=== PATIENT | female | born 1995 | race Caucasian/White ===

== ENCOUNTER 2017-01-26 19:39 | Emergency (ER) | payer OTHER ==
[2017-01-26 21:23] VITALS: BP 135/70
--- NOTE | 2017-01-26 21:50 | PHYS DOC ---
General Chief Complaint: FLANK PAIN Stated Complaint: R FLANK PAIN Time Seen by MD: 21:17 Source: patient Problems: History of Present Illness Initial Comments Patient with male friend for right sided abdominal pain. Patient has had sudden onset about 11:00 today. Since she's never had it before. No history of injury or trauma to the area. She says it feels sharp. It increased over the course today. It's mostly in the right mid to lower abdominal area. She really not radiating flank. She's had a low-grade fever of 99.2. There is no chills. There is no runny nose or sore throat. There is no chest pain or shortness of breath. She has had nausea with vomiting 2. She's not been able to tolerate by mouth food or fluids since. No blood or bilious material. She has the abdominal pain as described. There is some alternate diarrhea and constipation, but none today. She has no dysuria. She says her urine does look dark. She has some vaginal spotting which is been intermittent for the last several months since placement of an IUD, but this is not changed or different. There is no focal extremity or neurologic complaints. Patient states some [id number] medicine for this at home without help. She notes no other increased or decreasing factors. Patient's past medical history is remarkable for asthma anxiety and depression. She smokes less than a pack of cigarette [place]. She's nonuser of ethanol. She has no known family history of kidney disease or gallbladder problems. Allergies: Coded Allergies: No Known Allergies (Verified Allergy, Unknown, 01/26/17) Past Medical History Medical History: asthma Psychosocial History: anxiety, depression Social History Smoker: less than 1 pack/day Alcohol: none Review of Systems All Other Systems: Reviewed and Negative Physical Exam General Appearance: WD/WN, mild distress Neck: full range of motion, supple, normal inspection Respiratory: lungs clear, normal breath sounds, no respiratory distress Cardiovascular: regular rate, rhythm, no edema Gastrointestinal: soft, no organomegaly, tenderness Back: no CVA tenderness, no vertebral tenderness Extremities: non-tender, normal inspection Neurologic/Psychiatric: alert, normal mood/affect, oriented x 3 Skin: normal color Lymphatic: no adenopathy Comments Generally this a well-developed well-nourished white female does look to be in some mild distress with abdominal pain. Vitals are as noted. Pertinent findings on physical exam shows chest to be clear. Cardiac vascular exam shows regular rate and rhythm without murmur. The abdomen is soft. She is moderately tender in the right lower quadrant mildly so in the right upper quadrant. There is no masses, organomegaly, or perineal findings noted. Back shows no CVA tenderness. Extremities show no rash cyanosis or edema. Neurologic exam shows regular be awake alert oriented and cooperative. Remainder of physical exam is clinically unremarkable. Orders, Labs, Meds Old charts note no prior ER visits within the current system. Labs today are clinically unremarkable. CT scan of the abdomen and pelvis showed no acute changes per radiology. 2330 Patient resting comfortably in the ER. I discussed with her the uncertain cause of her abdominal and flank discomfort. She says her pain is actually much improved at this time, she is able tolerate some by mouth fluids without difficulty. I discussed with her usual natural history of abdominal pain of uncertain cause, that most often resolves on its own. I suspect she will continue to do well. She is able to drink some apple juice here also. We'll send her home with some appropriate medication at home for pain as well as for vomiting should she have any further difficulty. She does voiced understanding need to follow up with primary care and especially to return to the ER immediately as needed if worsening anyway for increasing pain, vomiting, diarrhea, fever, or other symptoms. As noted, she looks much improved, alert and smiling, in no acute distress, and okay for discharge home at this time. SHAWN STODDARD MD Jan 26, 2017 21:50
[2017-01-26] MEDS ORDERED: KETOROLAC 30 MG/ML VIAL. IV ONE (22:15)
[2017-01-26] MEDS ORDERED: ONDANSETRON PF 4 MG/2 ML VIAL. IV ONE (22:15)
[2017-01-26 22:26] LABS: BASO % 0 % (0-3); EOS # 0.1 x10^3/uL (0.0-0.7); EOS % 1 % (0-3); HEMATOCRIT 41.3 % (36.0-47.0); HEMOGLOBIN 13.8 g/dL (12.0-15.5); LYMPH # 1.2 x10^3/uL (1.0-4.8); LYMPH % 11 % (24-48); MEAN CORPUSCULAR HEMOGLOBIN 30 pg (25-35); MEAN CORPUSCULAR HGB CONC 33 g/dL (31-37); MEAN CORPUSCULAR VOLUME 88 fL (79-100); MONO # 0.4 x10^3/uL (0.0-1.1); MONO % 4 % (0-9); NEUT # 9.1 x10^3uL (1.8-7.7); NEUT % 84 % (31-73); PLATELET COUNT 219 x10^3/uL (140-400); RED BLOOD COUNT 4.67 x10^6/uL (3.50-5.40); RED CELL DISTRIBUTION WIDTH 13.9 % (11.5-14.5); WHITE BLOOD COUNT 10.9 x10^3/uL (4.0-11.0)
[2017-01-26 22:34] LABS: BILIRUBIN,URINE NEG (NEG); CLARITY,URINE CLEAR; COLOR,URINE AMBER; GLUCOSE,URINE NEG (NEG)
[2017-01-26 22:35] LABS: BACTERIA,URINE 0 /HPF (0-FEW); NITRITE,URINE NEG (NEG); RBC,URINE OCC /HPF (0-2); SQUAMOUS EPITHELIAL CELL,UR OCC /LPF; UROBILINOGEN,URINE 2 mg/dL (0.2 mg/dL); WBC,URINE OCC /HPF (0-4)
--- NOTE | 2017-01-26 22:35 | RAD ---
PROCEDURE CT abdomen and pelvis without intravenous contrast. HISTORY Lower right-sided abdominal pain. TECHNIQUE Helical CT of the abdomen and pelvis was performed without intravenous or oral contrast. Exposure: One or more of the following individualized dose reduction techniques were utilized for this examination: 1. Automated exposure control. 2. Adjustment of the mA and/or kV according to patient size. 3. Use of iterative reconstruction technique. COMPARISON None. FINDINGS Evaluation of solid organs is limited by lack of intravenous contrast. Evaluation of enteric structures may be limited by lack of oral contrast. Liver, spleen, pancreas, gallbladder, and bilateral adrenal glands are unremarkable. Bilateral kidneys and ureters are free of stone or obstruction. No bowel obstruction or inflammation is seen. Appendix is without evidence of inflammation. Urinary bladder is unremarkable. Intrauterine device is present. Uterus and adnexa have otherwise unremarkable CT appearance. No free air or significant free fluid is seen in the abdomen or pelvis. Vaginal tampon is present. IMPRESSION No acute abnormality identified in the abdomen or pelvis. No evidence of urinary stone. Electronically signed by: Yariel Keenan MD (Jan 26, 2017 22:33:18)
[2017-01-26 22:38] LABS: ALBUMIN 3.8 g/dL (3.4-5.0); ALBUMIN/GLOBULIN RATIO 1.3 (1.0-1.7); CALCIUM 8.9 mg/dL (8.5-10.1); CREATININE 0.7 mg/dL (0.6-1.0); GFR 106.7; POTASSIUM 3.6 mmol/L (3.5-5.1); TOTAL BILIRUBIN 0.6 mg/dL (0.2-1.0); TOTAL PROTEIN 6.8 g/dL (6.4-8.2)
== END 2017-01-26 23:45 | disposition home or self-care (01) ==
LOC: ER 19:39
DX: R10.31 Right lower quadrant pain (principal); R50.9 Fever, unspecified; R11.2 Nausea with vomiting, unspecified; F17.210 Nicotine dependence, cigarettes, uncomplicated; J45.909 Unspecified asthma, uncomplicated
CPT/HCPCS: 36415; 74176; 80053; 81001; 82150; 83690; 84703; 85027; 96374; 96375; 99285; J1885; J2405; 81025

== ENCOUNTER 2019-01-25 18:50 | Observation (INO) | payer OTHER ==
[~2019-01-25] VITALS: Ht 160 cm; Wt 80.5 kg
[2019-01-25 19:41] VITALS: BP 141/91
--- NOTE | 2019-01-25 19:45 | NUR ---
ADMISSION: The patient, YORDY MARTINES, 23 y/o, F admitted by ELHAM MALCOLM MD, was given written information regarding hospital policies, unit procedures and contact persons. Pt a direct admit to room [address] Malcolm. Pt here for c/o lower abdominal pain and bloody stools since Wednesday. Dx: Diverticulitis. Denies current pain and last stool was yesterday 01/24. VS assessed, stable. Dr. Malcolm notified of patient arrival, orders received. Call light in reach. Valuables were checked and logged. Left in room with patient.
[2019-01-25] MEDS ORDERED: IOHEXOL 300 MG/ML 75 ML VIAL. IV ONE (20:00)
[2019-01-25] MEDS: IV NORMAL SALINE 1,000ML 1,000 ML IV SCH (20:00)
[2019-01-25] MEDS ORDERED: IOHEXOL 240 MG/ML 50ML VIAL. PO ONE (20:00)
[2019-01-25 20:07] LABS: BASO # 0.1 x10^3/uL (0.0-0.2); BASO % 1 % (0-3); EOS # 0.2 x10^3/uL (0.0-0.7); EOS % 2 % (0-3); HEMATOCRIT 41.2 % (36.0-47.0); HEMOGLOBIN 14.5 g/dL (12.0-15.5); LYMPH # 2.3 x10^3/uL (1.0-4.8); LYMPH % 22 % (24-48); MEAN CORPUSCULAR HEMOGLOBIN 33 pg (25-35); MEAN CORPUSCULAR HGB CONC 35 g/dL (31-37); MEAN CORPUSCULAR VOLUME 93 fL (79-100); MONO # 0.6 x10^3/uL (0.0-1.1); MONO % 5 % (0-9); NEUT # 7.3 x10^3uL (1.8-7.7); NEUT % 70 % (31-73); PLATELET COUNT 339 x10^3/uL (140-400); RED BLOOD COUNT 4.43 x10^6/uL (3.50-5.40); RED CELL DISTRIBUTION WIDTH 12.8 % (11.5-14.5); WHITE BLOOD COUNT 10.5 x10^3/uL (4.0-11.0)
[2019-01-25] MEDS ORDERED: PANT40TA5 PO (20:21)
[2019-01-25] MEDS ORDERED: ONDA4TAB12 PO (20:21)
[2019-01-25] MEDS ORDERED: TRAZ-120 PO (20:21)
[2019-01-25 20:24] LABS: ALBUMIN 4.3 g/dL (3.4-5.0); ALBUMIN/GLOBULIN RATIO 1.4 (1.0-1.7); CREATININE 0.8 mg/dL (0.6-1.0); GFR 89.7; POTASSIUM 3.3 mmol/L (3.5-5.1); TOTAL BILIRUBIN 0.4 mg/dL (0.2-1.0); TOTAL PROTEIN 7.3 g/dL (6.4-8.2)
[2019-01-25 21:26] LABS: BACTERIA,URINE 0 /HPF (0-FEW); BILIRUBIN,URINE NEG (NEG); CLARITY,URINE HAZY; COLOR,URINE AMBER; GLUCOSE,URINE NEG (NEG); NITRITE,URINE NEG (NEG); RBC,URINE 0 /HPF (0-2); SQUAMOUS EPITHELIAL CELL,UR OCC /LPF; UROBILINOGEN,URINE 0.2 mg/dL (0.2 mg/dL); WBC,URINE 0 /HPF (0-4)
[2019-01-25 22:20] VITALS: BP 115/75
[2019-01-25] MEDS ORDERED: ACETAMINOPHEN 500 MG TABLET PO PRN (22:45)
[2019-01-25] MEDS ORDERED: ZOLPIDEM 5 MG TABLET. PO PRN (22:45)
[2019-01-25] MEDS ORDERED: MAG HYDROX/AL HYDROX/SIMETH 30 ML ORAL.SUSP PO PRN (23:00)
--- NOTE | 2019-01-25 23:31 | RAD ---
CT scan of the abdomen and pelvis with contrast 01/25/2019 CLINICAL HISTORY: Abdominal pain with nausea and vomiting and diarrhea for several days. TECHNIQUE: After the oral and intravenous administration of contrast, contiguous, 3 mm axial sections were obtained through the abdomen and pelvis. 75 cc of Omnipaque 300 were administered intravenously during this examination. One or more of the following individualized dose reduction techniques were utilized for this study: 1. Automated exposure control. 2. Adjustment of the mA and/or kV according to patient size. 3. Use of iterative reconstruction technique. FINDINGS: Comparison study is dated 01/26/2017. Images through the lung bases demonstrate minimal dependent subsegmental atelectasis bilaterally. The liver, spleen, pancreas, adrenal glands and kidneys are within normal limits. The abdominal aorta tapers normally. The gallbladder is well-distended. No free fluid or free air is within the abdomen. There is no evidence of bowel obstruction. Air and stool is seen throughout colon. The appendix is well-visualized and within normal limits. Images through the pelvis demonstrate the urinary bladder distended with urine. No adnexal mass is seen. A very small amount of free fluid is seen within the pelvis. The IUD seen on previous study has been removed. Minimal S-shaped curvature of the thoracolumbar spine is seen. IMPRESSION: 1. There is small amount of free fluid seen within the pelvis. 2. No additional acute abnormality is seen. Electronically signed by: Shreyas Hobbs MD (01/25/2019 11:28 PM) [id number]
[2019-01-26 05:07] VITALS: BP 115/74
[2019-01-26] MEDS: IV NORMAL SALINE 1,000ML 1,000 ML IV SCH (06:19)
[2019-01-26] MEDS ORDERED: KETOROLAC 15 MG/ML VIAL. IV PRN (08:15)
--- NOTE | 2019-01-26 09:47 | NUR ---
NURSING NOTE DISCHARGE PT DISCHARGED TO HOME VIA AMBULATION AT 0948 ACCOMPANIED BY SELF, GRANDMOTHER PICKING HER UP OUTSIDE. WRITTEN AND VERBAL DISCHARGE INSTRUCTIONS GIVEN TO PT. NO SCRIPTS. JUAN F REDDING.
--- NOTE | 2019-01-26 11:56 | DS ---
DATE OF DISCHARGE: HOSPITAL COURSE: A 23-year-old female came in with rectal bleeding. The patient was having severe abdominal pain, primarily in her left lower quadrant area. The patient had a CAT scan done. She has been seen once before in the ER. She was admitted for observation since she continued to still have this pain, which was getting progressively worse. The patient's CT scan showed free fluid in the pelvis, otherwise unremarkable. The patient made good progress during the rest of her hospitalization, blood pressure 115/74, respiratory rate 20, and pulse 90. She was afebrile. Her labs were basically nonconclusive. Her CBC was unremarkable aside of that low potassium, everything else looked pretty reasonable. As a result of this, the patient was discharged home. She will be followed up immediately with the pelvic exam at an outpatient clinic as well as getting a colonoscopy for rectal bleeding. She did have positive Hemoccult stools. We will continue to monitor her carefully as an outpatient. She was just given Toradol for pain. IMPRESSION: Severe left lower quadrant pain, hematochezia, melena. The patient will be discharged home. Follow up as an outpatient, make further evaluation on her as indicated with colonoscopy. See MRAD. Soft diet. ELHAM MALCOLM MD DR: JUDAH/nathalia JOB#: [id number] / [id number]
== END 2019-01-26 09:48 | disposition home or self-care (01) ==
LOC: 1 SOUTH 19:22 → INTOOBSV 19:22
PROVIDERS: ADMIT Family Medicine; ATTEND Family Medicine
DX: K92.1 Melena (principal); R31.29 Other microscopic hematuria; R11.2 Nausea with vomiting, unspecified; R53.83 Other fatigue; F17.210 Nicotine dependence, cigarettes, uncomplicated; Z79.899 Other long term (current) drug therapy
CPT/HCPCS: 36415; 74177; 80053; 81001; 84702; 85025; 87086; 96361; 96374; G0378; G0379; J1885; Q9967; J7030

== ENCOUNTER → 2020-11-21 | Outpatient (CLI) | payer OTHER ==
[~2020-11-21] MED LIST: ONDA4TAB12 PO; PANT40TA6 PO; TRAZ-120 PO
--- NOTE | 2020-11-21 13:20 | RAD ---
XR SHOULDER 2+ VIEWS 11/21/2020 9:42 AM INDICATION: Bilateral shoulder pain COMPARISON: None available. TECHNIQUE: 3 views of the right and 3 views of the left shoulder are provided. FINDINGS/ IMPRESSION: There is no acute fracture or dislocation. Joint spaces are maintained. Bone mineralization is within normal limits. Regional soft tissues are within normal limits. There is no soft tissue gas or osseou s erosion. No radiopaque foreign body. Electronically signed by: Monique Davis MD (11/21/2020 1:17 PM) [id number]
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
== END ==
LOC: DXRAD 09:35
PROVIDERS: ATTEND Family Medicine
DX: S19.9XXA Unspecified injury of neck, initial encounter (principal); X58.XXXA Exposure to other specified factors, initial encounter; Y93.89 Activity, other specified; Y92.89 Other specified places as the place of occurrence of the external cause; Y99.8 Other external cause status
CPT/HCPCS: 72040; 73030

== ENCOUNTER 2021-02-11 09:44 | Emergency (ER) | payer OTHER ==
[~2021-02-11] VITALS: Ht 160 cm; Wt 110.9 kg
[2021-02-11] MEDS ORDERED: IV NORMAL SALINE 1,000ML 1,000 ML IV ONE (10:00)
[2021-02-11 10:16] LABS: BASO # 0.1 x10^3/uL (0.0-0.2); BASO % 1 % (0-3); EOS # 0.1 x10^3/uL (0.0-0.7); EOS % 1 % (0-3); HEMATOCRIT 47.3 % (36.0-47.0); HEMOGLOBIN 15.8 g/dL (12.0-15.5); LYMPH % 24 % (24-48); MEAN CORPUSCULAR HEMOGLOBIN 33 pg (25-35); MEAN CORPUSCULAR HGB CONC 33 g/dL (31-37); MEAN CORPUSCULAR VOLUME 100 fL (79-100); MONO # 0.7 x10^3/uL (0.0-1.1); MONO % 9 % (0-9); NEUT # 5.4 x10^3uL (1.8-7.7); NEUT % 65 % (31-73); PLATELET COUNT 246 x10^3/uL (140-400); RED BLOOD COUNT 4.73 x10^6/uL (3.50-5.40); RED CELL DISTRIBUTION WIDTH 13.9 % (11.5-14.5); WHITE BLOOD COUNT 8.3 x10^3/uL (4.0-11.0)
[2021-02-11 10:24] LABS: CALCIUM 9.6 mg/dL (8.5-10.1); GFR 68.1; POTASSIUM 4.2 mmol/L (3.5-5.1)
[2021-02-11 10:32] LABS: ALBUMIN 3.7 g/dL (3.4-5.0); ALBUMIN/GLOBULIN RATIO 1.1 (1.0-1.7); MAGNESIUM 1.9 mg/dL (1.8-2.4); TOTAL BILIRUBIN 0.4 mg/dL (0.2-1.0)
--- NOTE | 2021-02-11 10:58 | RAD ---
EXAM: CT head without contrast INDICATION: Leg weakness COMPARISON: None TECHNIQUE: Axial CT imaging through the head without intravenous contrast. One or more of the following individualized dose reduction techniques were utilized for this examinat ion: 1. Automated exposure control 2. Adjustment of the mA and/or kV according to patient size 3. Use of iterative reconstruction technique. FINDINGS: The ventricles and sulci are normal. Lester-white matter differentiation is maintained. There is no in tracranial hemorrhage, acute infarct, or mass lesion. Basal cisterns are clear. The calvarium is inta ct. The visualized sinuses sinuses and mastoid air cells are clear. Globes and orbits are intact.. IMPRESSION: Normal CT of the head. Electronically signed by: Viridiana Segovia MD (02/11/2021 10:55 AM) [id number]
[2021-02-11 11:10] LABS: BARBITURATES NEG (NEG); BENZODIAZEPINES NEG (NEG); CANNABINOIDS NEG (NEG); COCAINE NEG (NEG); METHADONE NEG (NEG); OPIATES NEG (NEG); PHENCYCLIDINE NEG (NEG)
[2021-02-11 11:18] LABS: AMPHETAMINE/METHAMPHETAMINE NEG (NEG)
[2021-02-11 11:19] LABS: BACTERIA,URINE FEW /HPF (0-FEW); BILIRUBIN,URINE SMALL (NEG); CLARITY,URINE HAZY; COLOR,URINE YELLOW; GLUCOSE,URINE NEG (NEG); NITRITE,URINE NEG (NEG); SQUAMOUS EPITHELIAL CELL,UR MOD /LPF
[2021-02-11] MEDS ORDERED: diphenhydrAMINE 50 MG/ML VIAL IVP ONE (12:00)
[2021-02-11] MEDS ORDERED: methylPREDNISolone SOD SUCC PF 125 MG/2 ML VIAL. IV ONE (12:00)
[2021-02-11] MEDS ORDERED: FAMOTIDINE 20 MG TABLET PO ONE (12:00)
[2021-02-11] MEDS ORDERED: FAMO-63 PO (12:13)
[2021-02-11] MEDS ORDERED: PRED20TA PO (12:13)
--- NOTE | 2021-02-11 12:13 | PHYS DOC ---
Past History Past Medical History: Anxiety, Depression, GERD, Hypertension, Migraines Past Surgical History: Other Alcohol Use: None Drug Use: None General Adult EDM: Chief Complaint: MULTIPLE COMPLAINTS HPI: HPI: Patient is a 25-year-old female who was brought here by EMS from home due to worsening tingling sensation from her lower extremity that spreading to her upper extremity and around her mouth and lip area. Patient initially has some tingling sensation on the bottom of her feet about 2 weeks ago. Patient said her mom had long history of diabetic neuropathy, on Neurontin. Patient is worried that she might have diabetic so she took some of her mom Neurontin for the tingling sensation. Patient did have some Neurontin sample from her physician clinic and has been taking them but if patient taking the Neurontin her symptoms seem to get worse. Patient stopped taking the Neurontin 2 days ago because she worried that she might have an allergic reaction to it. Patient denies any headache, no slurred speech. Patient denies any cough or fever. Patient denies any abdominal pain, no nausea vomiting. Review of Systems: Review of Systems: Constitutional: Denies fever or chills Eyes: Denies change in visual acuity HENT: Denies nasal congestion or sore throat Respiratory: Denies cough or shortness of breath Cardiovascular: Denies chest pain or edema GI: Denies abdominal pain, nausea, vomiting, bloody stools or diarrhea : Denies dysuria Musculoskeletal: Denies back pain or joint pain Integument: Denies rash Neurologic: Denies headache, focal weakness or sensory changes. Positive for generalized weakness with Tingling sensations in lower extremities bilaterally that spreading to her upper body and to her face, lip area.. Endocrine: Denies polyuria or polydipsia Lymphatic: Denies swollen glands Psychiatric: Denies depression or anxiety Current Medications: Current Meds: Current Medications Medications (Trade) Dose Ordered Sig/Xu Start Time Stop Time Status Last Admin Dose Admin Diphenhydramine HCl (Benadryl) 25 mg 1X ONCE 02/11/21 12:00 02/11/21 12:01 DC 02/11/21 12:05 25 MG Famotidine (Pepcid) 20 mg 1X ONCE 02/11/21 12:00 02/11/21 12:01 DC 02/11/21 12:01 20 MG Methylprednisolone Sodium Succinate (SOLU-Medrol 125MG VIAL) 125 mg 1X ONCE 02/11/21 12:00 02/11/21 12:01 DC 02/11/21 12:02 125 MG Sodium Chloride 1,000 ml @ 1,000 mls/hr 1X ONCE 02/11/21 10:00 02/11/21 10:59 DC 02/11/21 10:34 1,000 MLS/HR Allergies: Allergies: Allergies Coded Allergies Type Severity Reaction Last Updated Verified No Known Allergies Allergy Unknown 02/11/21 Yes Physical Exam: PE: Constitutional: Well developed, well nourished, no acute distress, non-toxic appearance. [] HENT: Normocephalic, atraumatic, bilateral external ears normal, oropharynx moist, no oral exudates, nose normal. No angioedema, no tongue swelling, no lip swelling. Eyes: PERRLA, EOMI, conjunctiva normal, no discharge. [] Neck: Normal range of motion, no tenderness, supple, no stridor. [] Cardiovascular:Heart rate regular rhythm, no murmur [] Lungs & Thorax: Bilateral breath sounds clear to auscultation [] Abdomen: Bowel sounds normal, soft, no tenderness, no masses, no pulsatile masses. [] Skin: Warm, dry, no erythema, no rash. [] Back: No tenderness, no CVA tenderness. [] Extremities: No tenderness, no cyanosis, no clubbing, ROM intact, no edema. [] Neurologic: Alert and oriented X 3, normal motor function, normal sensory function, no focal deficits noted. Moved all extremities without any problem, symmetrical facial expression, normal speech. No ALTERED SENSATION. Psychologic: Affect normal, judgement normal, mood normal. [] Current Patient Data: Labs: Laboratory Tests Test 02/11/21 10:00 02/11/21 10:26 02/11/21 10:39 White Blood Count 8.3 x10^3/uL (4.0-11.0) Red Blood Count 4.73 x10^6/uL (3.50-5.40) Hemoglobin 15.8 g/dL (12.0-15.5) H Hematocrit 47.3 % (36.0-47.0) H Mean Corpuscular Volume 100 fL (79-100) Mean Corpuscular Hemoglobin 33 pg (25-35) Mean Corpuscular Hemoglobin Concent 33 g/dL (31-37) Red Cell Distribution Width 13.9 % (11.5-14.5) Platelet Count 246 x10^3/uL (140-400) Neutrophils (%) (Auto) 65 % (31-73) Lymphocytes (%) (Auto) 24 % (24-48) Monocytes (%) (Auto) 9 % (0-9) Eosinophils (%) (Auto) 1 % (0-3) Basophils (%) (Auto) 1 % (0-3) Neutrophils # (Auto) 5.4 x10^3uL (1.8-7.7) Lymphocytes # (Auto) 2.0 x10^3/uL (1.0-4.8) Monocytes # (Auto) 0.7 x10^3/uL (0.0-1.1) Eosinophils # (Auto) 0.1 x10^3/uL (0.0-0.7) Basophils # (Auto) 0.1 x10^3/uL (0.0-0.2) Sodium Level 138 mmol/L (136-145) Potassium Level 4.2 mmol/L (3.5-5.1) Chloride Level 102 mmol/L (98-107) Carbon Dioxide Level 26 mmol/L (21-32) Anion Gap 10 (6-14) Blood Urea Nitrogen 7 mg/dL (7-20) Creatinine 1.0 mg/dL (0.6-1.0) Estimated GFR (Cockcroft-Gault) 68.1 BUN/Creatinine Ratio 7 (6-20) Glucose Level 117 mg/dL (70-99) H Calcium Level 9.6 mg/dL (8.5-10.1) Magnesium Level 1.9 mg/dL (1.8-2.4) Total Bilirubin 0.4 mg/dL (0.2-1.0) Aspartate Amino Transferase (AST) 96 U/L (15-37) H Alanine Aminotransferase (ALT) 120 U/L (14-59) H Alkaline Phosphatase 106 U/L (46-116) Total Protein 7.0 g/dL (6.4-8.2) Albumin 3.7 g/dL (3.4-5.0) Albumin/Globulin Ratio 1.1 (1.0-1.7) Urine Collection Type Unknown Urine Color Yellow Urine Clarity Hazy Urine pH 8.0 Urine Specific Lerna 1.015 Urine Protein 30 mg/dl (NEG-TRACE) Urine Glucose (UA) Neg mg/dL (NEG) Urine Ketones (Stick) Trace mg/dL (NEG) Urine Blood Trace (NEG) Urine Nitrite Neg (NEG) Urine Bilirubin Small (NEG) Urine Urobilinogen Dipstick 2.0 mg/dL (0.2 mg/dL) Urine Leukocyte Esterase Trace (NEG) Urine RBC 1-2 /HPF (0-2) Urine WBC 1-4 /HPF (0-4) Urine Squamous Epithelial Cells Mod /LPF Urine Transitional Epithelial Cells Few /LPF Urine Bacteria Few /HPF (0-FEW) Urine Mucus Slight /LPF Urine Opiates Screen Neg (NEG) Urine Methadone Screen Neg (NEG) Urine Barbiturates Neg (NEG) Urine Phencyclidine Screen Neg (NEG) Urine Amphetamine/Methamphetamine Neg (NEG) Urine Benzodiazepines Screen Neg (NEG) Urine Cocaine Screen Neg (NEG) Urine Cannabinoids Screen Neg (NEG) Urine Ethyl Alcohol Neg (NEG) POC Urine HCG, Qualitative hcg negative (Negative) Vital Signs: Vital Signs Date Time Temp Pulse Resp B/P (MAP) Pulse Ox O2 Delivery O2 Flow Rate FiO2 02/11/21 09:45 98.1 115 17 109/74 (86) 98 Room Air EKG: EKG: [] Radiology/Procedures: Radiology/Procedures: [][address] [address] IMAGING REPORT Signed PATIENT: YORDY MARTINES RACCOUNT: [id number] : 1995 LOCATION: ER AGE: 25 SEX: F EXAM STATUS: REG ER ORD. PHYSICIAN: ELHAM SILVA DO REASON: legs weakness PROCEDURE: CT HEAD WO CONTRAST EXAM: CT head without contrast INDICATION: Leg weakness COMPARISON: None TECHNIQUE: Axial CT imaging through the head without intravenous contrast. One or more of the following individualized dose reduction techniques were utilized for this examination: 1. Automated exposure control 2. Adjustment of the mA and/or kV according to patient size 3. Use of iterative reconstruction technique. FINDINGS: The ventricles and sulci are normal. Lester-white matter differentiation is maintained. There is no intracranial hemorrhage, acute infarct, or mass lesion. Basal cisterns are clear. The calvarium is intact. The visualized sinuses sinuses and mastoid air cells are clear. Globes and orbits are intact.. IMPRESSION: Normal CT of the head. Electronically signed by: Viridiana Segovia MD (02/11/2021 10:55 AM) [id number] DICTATED AND SIGNED BY: VIRIDIANA SEGOVIA MD DATE: 02/11/21 1051 CC: ELHAM MALCOLM MD; ELHAM SILVA DO ~MTH0 0 Heart Score: C/O Chest Pain: N/A Risk Factors: Risk Factors: DM, Current or recent (<one month) smoker, HTN, HLP, family history of CAD, obesity. Risk Scores: Score 0 - 3: 2.5% MACE over next 6 weeks - Discharge Home Score 4 - 6: 20.3% MACE over next 6 weeks - Admit for Clinical Observation Score 7 - 10: 72.7% MACE over next 6 weeks - Early Invasive Strategies Course & Med Decision Making: Course & Med Decision Making Pertinent Labs and Imaging studies reviewed. (See chart for details) Patient is a 25-year-old female who was brought here by EMS from home due to general weakness, tingling sensation from her lower extremity from her feet all the way to her upper extremity and around her mouth area. Work-up in the ER including CT scan her head and lab work did not show any acute problem. Patient is slightly dehydrated. Patient did not have any rash, no swelling on exami nation. Patient is worried that she might have allergic reaction to Neurontin. Patient was discharged home with prednisone and Pepcid, told to take Benadryl as needed if she allergic to Neurontin. Patient will need to follow-up with her family physician for reevaluation. Patient is amenable to plan of care. Dragon Disclaimer: Dragon Disclaimer: This electronic medical record was generated, in whole or in part, using a voice recognition dictation system. Departure Departure: Impression: Primary Impression: Dehydration Additional Impressions: Drug side effects Paresthesia Disposition: HOME / SELF CARE / HOMELESS Condition: IMPROVED Referrals: ELHAM MALCOLM MD (PCP) PLEASE FOLLOW UP WITH YOUR FAMILY DOCTOR THIS WEEK Patient Instructions: Dehydration, Adult, Drug Allergy, Paresthesia Additional Instructions: Thank you for visiting our Emergency Department. We appreciate you trusting us with your care. If any additional problems come up don't hesitate to return to visit us. Please follow up with your primary care provider so they can plan additional care if needed and know about the problem that you had. If symptoms worsen come back to the Emergency Department. Any concerning symptoms that start such as chest pain, shortness of air, weakness or numbness on one side of the body, running high fevers or any other concerning symptoms return to the ER. Scripts Prednisone (PREDNISONE) 20 Mg Tablet 1 TAB PO DAILY for ALLERGY, #5 TAB Prov: ELHAM SILVA DO 02/11/21 Famotidine (PEPCID) 20 Mg Tablet 20 MG PO DAILY for ALLERGY for 7 Days, #7 TAB Prov: ELHAM SILVA DO 02/11/21 ELHAM SILVA DO Feb 11, 2021 12:13
[2021-02-11 12:55] VITALS: BP 125/68
[2021-02-11] MEDS ORDERED: METO25TA4 PO (15:58)
[2021-02-11] MEDS ORDERED: OMEP20TA63 PO (15:58)
== END 2021-02-11 13:07 | disposition home or self-care (01) ==
LOC: ER 09:44
DX: E86.0 Dehydration (principal); R20.2 Paresthesia of skin; T42.6X5A Adverse effect of other antiepileptic and sedative-hypnotic drugs, initial encounter; F41.9 Anxiety disorder, unspecified; F32.9 Major depressive disorder, single episode, unspecified; K21.9 Gastro-esophageal reflux disease without esophagitis; I10 Essential (primary) hypertension; G43.909 Migraine, unspecified, not intractable, without status migrainosus; Y92.89 Other specified places as the place of occurrence of the external cause
CPT/HCPCS: 36415; 70450; 80053; 80307; 81001; 81025; 83735; 85025; 87086; 96361; 96374; 96375; 99284; J1200; J2930; J7030

== ENCOUNTER 2021-02-11 14:22 | Observation (INO) | payer OTHER ==
[~2021-02-11] VITALS: Ht 160 cm; Wt 110.0 kg
[~2021-02-11 14:22] MED LIST changes: +FAMO-63 PO; +PRED20TA PO
[2021-02-11] MEDS ORDERED: hydrOXYzine HCL 25 MG TABLET PO PRN (15:15)
[2021-02-11] MEDS ORDERED: IV NORMAL SALINE 1,000ML 1,000 ML IV SCH (15:15)
[2021-02-11] MEDS ORDERED: ACETAMINOPHEN 325 MG TABLET PO ONE (15:15)
[2021-02-11] MEDS ORDERED: ZOLPIDEM 5 MG TABLET. PO PRN (15:15)
--- NOTE | 2021-02-11 15:20 | NUR ---
Called consult in to Dr Miranda office, left message with hospice patient care secretary. Also paged him to call unit.
[2021-02-11 15:42] VITALS: BP 148/88
[2021-02-11] MEDS ORDERED: OMEP20TA63 PO (15:58)
[2021-02-11] MEDS ORDERED: METO25TA4 PO (15:58)
--- NOTE | 2021-02-11 16:17 | RAD ---
EXAM: Chest, single view. HISTORY: Shortness of breath. COMPARISON: 12/28/2016 FINDINGS: A frontal view of the chest is obtained. There is no infiltrate, pleural effusion or pneumo thorax. The heart is normal in size. IMPRESSION: No acute pulmonary finding. Electronically signed by: Carolina Payne MD (02/11/2021 4:15 PM) [facility]
--- NOTE | 2021-02-11 16:17 | NUR ---
Admission note pt admitted to the unit at 1407 via wheelchair with chief complaint of muscle weakness and "whole body numbness" Dr. Sampson notified with orders received
--- NOTE | 2021-02-11 16:17 | RAD ---
Exam: CT of abdomen and pelvis without contrast. CT lumbar spine INDICATION: Nausea vomiting, elevated liver enzymes TECHNIQUE: Sequential axial images through the abdomen and pelvis obtained without IV contrast. Sagit ladonna and coronal reformatted images were reconstructed from the axial data and reviewed. Cone-down rec onstructed images of the lumbar spine were also reviewed. Comparisons: 01/25/2019 FINDINGS: Heart size is normal. No pericardial effusion. Visualized lung bases are clear. No pleural effusion. Evaluation of solid organs limited secondary to noncontrast technique. Diffuse hepatic steatosis. Spleen, pancreas, gallbladder and adrenals are unremarkable. No perinephric inflammation or hydronephrosis. No renal or ureteral calculi are identified. Bladder is distended and appears thin-walled. Uterus not enlarged. No abnormal adnexal mass. Large and small bowel are unremarkable. Appendix is normal. No free intra-abdominal air or fluid. No obstruction. Abdominal aorta has a normal course and caliber. No enlarged intra-abdominal lymph nodes are identified. No suspicious osseous lesions or acute fractures. Lumbar spine: Vertebral body heights and alignment are well-maintained. Fracture to the lumbar spine is not identified. No significant spondylotic change in the lumbar spine. IMPRESSION: 1. Diffuse hepatic steatosis. 2. No acute process identified within the abdomen or pelvis. 3. Unremarkable CT of lumbar spine. Exposure: One or more of the following in the visualized dose reduction techniques were utilized for this examination: 1. Automated exposure control 2. Adjustment of the MA and/or KV according to patient size 3. Use of iterative of reconstructive technique Electronically signed by: Jina Ni MD (02/11/2021 4:14 PM) [facility]
--- NOTE | 2021-02-11 16:20 | RAD ---
Exam: Left foot 3 views INDICATION: Numbness TECHNIQUE: Frontal, lateral and oblique views of the left foot Comparisons: None FINDINGS: Bone mineralization is normal. No acute or healed fractures. Soft tissues are unremarkable. Joint spa selam are well-maintained. IMPRESSION: No acute osseous abnormality. Electronically signed by: Jina Ni MD (02/11/2021 4:17 PM) MIGEL
[2021-02-11 16:26] LABS: AMYLASE 17 U/L (25-115)
--- NOTE | 2021-02-11 17:10 | NUR ---
Kirklin paged Dr Miranda to call unit.
[2021-02-11] MEDS ORDERED: ONDANSETRON ODT 4 MG TAB.RAPDIS PO PRN (18:45)
[2021-02-11] MEDS ORDERED: diazePAM 2 MG TABLET. PO PRN (18:45)
--- NOTE | 2021-02-11 19:28 | NUR ---
Able to reach Dr. Miranda and pt presentation discussed. Recommends transfer to [facility] for stat lumbar puncture to r/o Bridget Yarbrough. Dr. Sampson and pt agreeable. 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
[2021-02-11 20:15] VITALS: BP 124/71
--- NOTE | 2021-02-11 20:23 | NUR ---
Pt accepted by Dr. Hunt at [facility]. Pt transferring to room 104. Report called to JUAN F Keene. EMS called, awaiting transport.
[2021-02-11 20:35] VITALS: BP 144/84
[2021-02-11] MEDS ORDERED: METOPROLOL TART IMMED RELEASE 25 MG TABLET. PO SCH ×2 (21:00)
--- NOTE | 2021-02-11 21:10 | NUR ---
Discharge Note: [facility]ORDY MARTIN[facility] ICU Discharge instructions and discharge home medications reviewed with Other facility and a copy given. All questions have been answered and understanding verbalized. The following instructions and handouts were given: ATTILA REYNAGA DC PACKET. Discontinued lines and drains: Peripheral IV #20G LT. FA REMAINS IN PLACE, SL. Patient discharged to [facility] with Ambulance Personnel via Stretcher.
== END 2021-02-11 21:10 | disposition short-term general hospital (02) ==
LOC: INTOOBSV 14:22 → ICU 14:22
PROVIDERS: ADMIT Family Medicine; ATTEND Family Medicine
DX: E86.0 Dehydration (principal); M62.81 Muscle weakness (generalized); R20.2 Paresthesia of skin; F41.9 Anxiety disorder, unspecified; F32.9 Major depressive disorder, single episode, unspecified; I10 Essential (primary) hypertension; K21.9 Gastro-esophageal reflux disease without esophagitis; G43.909 Migraine, unspecified, not intractable, without status migrainosus
CPT/HCPCS: 36415; 71045; 72131; 73630; 74176; 82150; 82550; 85379; 96360; 96361; G0378; G0379; J7030

== ENCOUNTER 2021-05-05 14:00 | Inpatient (IN) | payer OTHER ==
[~2021-05-05] VITALS: Ht 162.6 cm; Wt 104.2 kg
[~2021-05-05 14:00] MED LIST changes: +METO25TA4 PO; +OMEP20TA63 PO
[2021-05-05] MEDS ORDERED: IOHEXOL 350 MG/ML 100 ML VIAL. IV ONE (14:15)
[2021-05-05] MEDS ORDERED: IV NORMAL SALINE 1,000ML 1,000 ML IV ONE ×2 (14:15)
[2021-05-05] MEDS ORDERED: MORPHINE SULFATE 4 MG/ML DISP.SYRIN. IV ONE ×2 (14:45→17:00)
[2021-05-05] MEDS ORDERED: ONDANSETRON PF 4 MG/2 ML VIAL. IVP ONE (14:45)
[2021-05-05 14:50] LABS: BASO # 0.1 x10^3/uL (0.0-0.2); BASO % 0 % (0-3); EOS % 0 % (0-3); HEMATOCRIT 37.9 % (36.0-47.0); HEMOGLOBIN 12.6 g/dL (12.0-15.5); LYMPH # 1.3 x10^3/uL (1.0-4.8); LYMPH % 7 % (24-48); MEAN CORPUSCULAR HEMOGLOBIN 31 pg (25-35); MEAN CORPUSCULAR HGB CONC 33 g/dL (31-37); MEAN CORPUSCULAR VOLUME 92 fL (79-100); MONO # 0.5 x10^3/uL (0.0-1.1); MONO % 2 % (0-9); NEUT % 91 % (31-73); PLATELET COUNT 356 x10^3/uL (140-400); RED BLOOD COUNT 4.12 x10^6/uL (3.50-5.40); WHITE BLOOD COUNT 19.8 x10^3/uL (4.0-11.0)
[2021-05-05 15:10] LABS: CALCIUM 8.9 mg/dL (8.5-10.1); CREATININE 0.9 mg/dL (0.6-1.0); GFR 76.9; POTASSIUM 5.3 mmol/L (3.5-5.1)
[2021-05-05 15:16] LABS: ALBUMIN 3.1 g/dL (3.4-5.0); ALBUMIN/GLOBULIN RATIO 0.9 (1.0-1.7); TOTAL BILIRUBIN 0.3 mg/dL (0.2-1.0); TOTAL PROTEIN 6.5 g/dL (6.4-8.2)
--- NOTE | 2021-05-05 15:24 | PHYS DOC ---
Past History Past Medical History: Anxiety, Depression, GERD, Hypertension, Migraines Additional Past Medical Histor: VIANEY PAGE Past Surgical History: No Surgical History Alcohol Use: None Drug Use: None General Adult EDM: Chief Complaint: SHORTNESS OF BREATH HPI: HPI: 25-year-old female presents with shortness of breath and profound fatigue. Patient started to have a cough yesterday while shortness of breath. It is much worse today. The patient has been vaccinated against COVID-19. 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 She just came home a couple weeks ago. The patient is a smoker but does not on control. She has had a prolonged period of decreased mobility due to her Guillain-Asif. She denies any leg swelling or pain. No measured fever at home. Review of Systems: Review of Systems: Constitutional: Denies fever or chills. Fatigue. Eyes: Denies change in visual acuity HENT: Denies nasal congestion or sore throat Respiratory: Cough with shortness of breath Cardiovascular: Denies chest pain or edema GI: Denies abdominal pain, nausea, vomiting, bloody stools or diarrhea : Denies dysuria Musculoskeletal: Denies back pain or joint pain Integument: Denies rash Neurologic: Denies headache, focal weakness or sensory changes Endocrine: Denies polyuria or polydipsia Lymphatic: Denies swollen glands Psychiatric: Denies depression or anxiety Current Medications: Current Meds: Current Medications Medications (Trade) Dose Ordered Sig/Xu Start Time Stop Time Status Last Admin Dose Admin Iohexol (Omnipaque 350 Mg/ml) 100 ml 1X ONCE 05/05/21 14:15 05/05/21 14:19 DC Morphine Sulfate (Morphine 4mg Syringe) 4 mg 1X ONCE 05/05/21 14:45 05/05/21 14:46 DC Ondansetron HCl (Zofran) 4 mg 1X ONCE 05/05/21 14:45 05/05/21 14:46 DC Sodium Chloride 1,000 ml @ 1,000 mls/hr 1X ONCE 05/05/21 14:15 05/05/21 15:14 DC Allergies: Allergies: Allergies Coded Allergies Type Severity Reaction Last Updated Verified No Known Allergies Allergy Unknown 02/11/21 Yes Physical Exam: PE: Constitutional: Well developed, well nourished, morbidly obese, no acute distress, non-toxic appearance. [] HENT: Normocephalic, atraumatic, bilateral external ears normal, oropharynx moist, no oral exudates, nose normal. [] Eyes: PERRLA, EOMI, conjunctiva normal, no discharge. [] Neck: Normal range of motion, no tenderness, supple, no stridor. [] Cardiovascular: Heart rate 122, regular rhythm, no murmur [] Lungs & Thorax: Bilateral breath sounds clear to auscultation [] Abdomen: Bowel sounds normal, soft, no tenderness, no masses, no pulsatile masses. [] Skin: Warm, dry, no erythema, no rash. [] Back: No tenderness, no CVA tenderness. [] Extremities: No tenderness, no cyanosis, no clubbing, ROM intact, no edema. [] Neurologic: Alert and oriented X 3, normal motor function, normal sensory function, no focal deficits noted. [] Psychologic: Affect normal, judgement normal, mood normal. [] Current Patient Data: Labs: Laboratory Tests Test 05/05/21 14:08 White Blood Count 19.8 x10^3/uL (4.0-11.0) H Red Blood Count 4.12 x10^6/uL (3.50-5.40) Hemoglobin 12.6 g/dL (12.0-15.5) Hematocrit 37.9 % (36.0-47.0) Mean Corpuscular Volume 92 fL (79-100) Mean Corpuscular Hemoglobin 31 pg (25-35) Mean Corpuscular Hemoglobin Concent 33 g/dL (31-37) Red Cell Distribution Width 13.0 % (11.5-14.5) Platelet Count 356 x10^3/uL (140-400) Neutrophils (%) (Auto) 91 % (31-73) H Lymphocytes (%) (Auto) 7 % (24-48) L Monocytes (%) (Auto) 2 % (0-9) Eosinophils (%) (Auto) 0 % (0-3) Basophils (%) (Auto) 0 % (0-3) Neutrophils # (Auto) 18.0 x10^3uL (1.8-7.7) H Lymphocytes # (Auto) 1.3 x10^3/uL (1.0-4.8) Monocytes # (Auto) 0.5 x10^3/uL (0.0-1.1) Eosinophils # (Auto) 0.0 x10^3/uL (0.0-0.7) Basophils # (Auto) 0.1 x10^3/uL (0.0-0.2) Platelet Estimate Pending Vital Signs: Vital Signs Date Time Temp Pulse Resp B/P (MAP) Pulse Ox O2 Delivery O2 Flow Rate FiO2 05/05/21 14:57 99.2 124 103/50 92 Nasal Cannula 5.0 EKG: EKG: Sinus tachycardia, rate 121, normal axis, no ST elevation or depression. [] Radiology/Procedures: Radiology/Procedures: [] Impressions: EXAMINATION: CTA CHEST CLINICAL HISTORY: Shortness of breath, tachycardia Technique: Spiral CT acquisition of the chest from the thoracic inlet to the u pper abdomen following IV contrast with coronal and sagittal reformatted images also provided for review. 3D maximum intensity projection images also performed. CT Dose Reduction Employed: One or more of the following individualized dose reduction techniques were utilized for this examination: 1. Automated exposure control 2. Adjustment of the mA and/or kV according to patient size 3. Use of iterative reconstruction technique. Comparison: Chest radiograph same day FINDINGS: Nonideal opacification of the pulmonary arterial system somewhat limits evaluation. Pulmonary Vasculature: No evidence of main, lobar, or definite proximal segmental pulmonary arterial thrombus. Lung Parenchyma, Pleura, and Airways: Central and lower lobe predominant patchy groundglass and alveolar opacities. No pleural effusion. Central airways patent. Lower Neck, Lymph Nodes, and Mediastinum: Visualized thyroid gland within normal limits. Prominent to mildly enlarged enlarged right paratracheal lymph nodes measuring up to 1.1 cm in short axis. No axillary lymphadenopathy. Heart, Pericardium, and Thoracic Vessels: Cardiac chambers normal in size. No pericardial effusion. Thoracic aorta within normal limits. Bones and Soft Tissues: No evidence of acute osseous abnormality. Upper Abdomen: Partially visualized upper abdomen unremarkable. IMPRESSION: No evidence of main, lobar, or definite proximal segmental pulmonary embolism on somewhat limited evaluation as described. Bilateral groundglass and alveolar opacities as described, possibly related to pulmonary edema and/or atypical pneumonia. Mild mediastinal lymphadenopathy, likely reactive. Electronically signed by: Chris Vidales DO (05/05/2021 4:00 PM) UIMISTY DICTATED AND SIGNED BY: CHRIS VIDALES DO DATE: 05/05/21 1549 CC: FERCHO CALLAHAN DO; ELHAM MALCOLM MD ~MTH0 0 Heart Score: C/O Chest Pain: No Risk Factors: Risk Factors: DM, Current or recent (<one month) smoker, HTN, HLP, family history of CAD, obesity. Risk Scores: Score 0 - 3: 2.5% MACE over next 6 weeks - Discharge Home Score 4 - 6: 20.3% MACE over next 6 weeks - Admit for Clinical Observation Score 7 - 10: 72.7% MACE over next 6 weeks - Early Invasive Strategies Course & Med Decision Making: Course & Med Decision Making Pertinent Labs and Imaging studies reviewed. (See chart for details) The patient has a significant elevated white count. Her CT angiogram is negati ve for PE but does show bilateral groundglass opacities. This could be atypical pneumonia. It could also be COVID-19. We have swabbed the patient will not give results for another day or 2. I have given her 1 g of Rocephin and 500 of azithromycin IV. The patient has an elevated troponin of 0.142. Her EKG was unremarkable. She is not currently having chest pain. I spoke with her doctor, Dr. Bee and he has accepted the patient for admission. We will keep her at this hospital at this time. We will trend her troponins and if they worsen she may need to be transferred for cardiac cath. [] Dragon Disclaimer: Dragon Disclaimer: This electronic medical record was generated, in whole or in part, using a voice recognition dictation system. Departure Departure: Impression: Primary Impression: Atypical pneumonia Additional Impression: Elevated troponin I level Disposition: ADMITTED INPATIENT Admitting Physician: Elham Malcolm Condition: GUARDED Referrals: ELHAM MALCOLM MD (PCP) FERCHO CALLAHAN DO May 05, 2021 15:24
[2021-05-05 15:44] LABS: % ATYL 4 % (0-0); % BANDS 27 % (0-9); % EOS 2 % (0-5); % LYMPHS 5 % (24-48); % METAS 4 % (0-0); % MONOS 6 % (0-10); % SEGS 52 % (35-66)
[2021-05-05 15:46] LABS: PLT ESTIMATE INCREASED (ADEQUATE)
--- NOTE | 2021-05-05 15:46 | RAD ---
Single view chest dated 05/05/2021 3:43 PM: COMPARISON: 02/11/2021 Clinical Indication: Shortness breath. Findings: Single upright portable exam of the chest was performed. Heart and mediastinal contours are stable. T here is patchy airspace disease at the perihilar regions and bilateral lung bases, new from prior kia dy. No pleural effusion. No pneumothorax. IMPRESSION: 1. Bilateral airspace disease, noncardiogenic edema versus pneumonia. Electronically signed by: Yariel Castillo MD (05/05/2021 3:44 PM) [id number]
--- NOTE | 2021-05-05 16:03 | RAD ---
EXAMINATION: CTA CHEST CLINICAL HISTORY: Shortness of breath, tachycardia Technique: Spiral CT acquisition of the chest from the thoracic inlet to the upper abdomen following IV contrast with coronal and sagittal reformatted images also provided for review. 3D maximum intensi ty projection images also performed. CT Dose Reduction Employed: One or more of the following individualized dose reduction techniques wer e utilized for this examination: 1. Automated exposure control 2. Adjustment of the mA and/or kV ac cording to patient size 3. Use of iterative reconstruction technique. Comparison: Chest radiograph same day FINDINGS: Nonideal opacification of the pulmonary arterial system somewhat limits evaluation. Pulmonary Vasculature: No evidence of main, lobar, or definite proximal segmental pulmonary arterial thrombus. Lung Parenchyma, Pleura, and Airways: Central and lower lobe predominant patchy groundglass and alveo lar opacities. No pleural effusion. Central airways patent. Lower Neck, Lymph Nodes, and Mediastinum: Visualized thyroid gland within normal limits. Prominent to mildly enlarged enlarged right paratracheal lymph nodes measuring up to 1.1 cm in short axis. No axi llary lymphadenopathy. Heart, Pericardium, and Thoracic Vessels: Cardiac chambers normal in size. No pericardial effusion. T horacic aorta within normal limits. Bones and Soft Tissues: No evidence of acute osseous abnormality. Upper Abdomen: Partially visualized upper abdomen unremarkable. IMPRESSION: No evidence of main, lobar, or definite proximal segmental pulmonary embolism on somewhat limited alex luation as described. Bilateral groundglass and alveolar opacities as described, possibly related to pulmonary edema and/or atypical pneumonia. Mild mediastinal lymphadenopathy, likely reactive. Electronically signed by: Chris Morales DO (05/05/2021 4:00 PM) TOO
[2021-05-05 16:20] LABS: BARBITURATES NEG (NEG); BENZODIAZEPINES NEG (NEG); CANNABINOIDS NEG (NEG); COCAINE NEG (NEG); METHADONE NEG (NEG); OPIATES POS (NEG); PHENCYCLIDINE NEG (NEG)
[2021-05-05 16:21] LABS: AMPHETAMINE/METHAMPHETAMINE NEG (NEG)
[2021-05-05 16:29] LABS: BILIRUBIN,URINE NEG (NEG); CLARITY,URINE CLEAR; COLOR,URINE YELLOW; GLUCOSE,URINE 100 mg/dL (NEG); NITRITE,URINE NEG (NEG); UROBILINOGEN,URINE 0.2 mg/dL (0.2 mg/dL)
[2021-05-05] MEDS ORDERED: AZITHROMYCIN 500 MG in IV NORMAL SALINE 250ML 250 ML IV ONE (16:30)
[2021-05-05 16:37] LABS: BACTERIA,URINE FEW /HPF (0-FEW); RBC,URINE 0 /HPF (0-2); SQUAMOUS EPITHELIAL CELL,UR OCC /LPF; WBC,URINE OCC /HPF (0-4)
[2021-05-05] MEDS ORDERED: AZITHROMYCIN 500 MG VIAL. IV ONE (16:37)
[2021-05-05] MEDS ORDERED: IV NORMAL SALINE 250ML 250 ML ONE (16:37)
[2021-05-05] MEDS ORDERED: cefTRIAXone SODIUM 1 GM VIAL ONE (16:37)
[2021-05-05] MEDS ORDERED: IV NORMAL SALINE 50ML 50 ML ONE ×2 (16:37)
[2021-05-05 16:38] LABS: HYALINE CASTS, URINE MOD /HPF
[2021-05-05] MEDS ORDERED: ACETAMINOPHEN 325 MG TABLET PO PRN ×2 (17:00→20:30)
[2021-05-05] MEDS ORDERED: ONDANSETRON PF 4 MG/2 ML VIAL. IVP PRN (17:00)
[2021-05-05 18:40] VITALS: BP 88/50
--- NOTE | 2021-05-05 18:42 | NUR ---
ADMISSION NOTE: Pt arrives via stretcher with ED nurse et [facility]. Transfers to bed via sheet. VS, height et weight obtained. Call light in reach at this time.
[2021-05-05] MEDS ORDERED: ZOLPIDEM 5 MG TABLET. PO PRN (20:00)
[2021-05-05] MEDS ORDERED: PIP/TAZO PER PHARMACY MC PRN (20:15)
[2021-05-05] MEDS ORDERED: POLY17PO5 PO (20:16)
[2021-05-05] MEDS ORDERED: PREG200C PO (20:16)
[2021-05-05] MEDS ORDERED: ACET325T9 PO (20:16)
[2021-05-05] MEDS ORDERED: OXCA600T9 PO (20:16)
[2021-05-05] MEDS ORDERED: SENN8.6T11 PO (20:16)
[2021-05-05] MEDS ORDERED: MELA5TAB20 PO (20:16)
[2021-05-05] MEDS ORDERED: BISA10SU4 RC (20:16)
[2021-05-05] MEDS ORDERED: VENL75TA2 PO (20:16)
[2021-05-05] MEDS ORDERED: MIRT15TA90 PO (20:16)
[2021-05-05] MEDS ORDERED: CETI10TA16 PO (20:16)
[2021-05-05] MEDS ORDERED: BACL10TA PO (20:16)
[2021-05-05] MEDS ORDERED: OXYC5CAP PO (20:16)
[2021-05-05] MEDS ORDERED: BISACODYL 10 MG SUPP.RECT RC PRN (20:30)
[2021-05-05] MEDS ORDERED: ONDANSETRON ODT 4 MG TAB.RAPDIS PO PRN (20:30)
[2021-05-05] MEDS ORDERED: MELATONIN 3 MG TABLET PO PRN (20:45)
--- NOTE | 2021-05-05 21:17 | EKG ---
[address] [address] Test Date: 2021-05-05 Test Time: 21:12:49 Pat Name: YORDY MARTINES Department: Room: Gender: F Wholesaler: : 1995 Requested By: FERCHO CALLAHAN Order Number: [id number] Reading MD: Measurements Intervals [place] Rate: 104 P: 34 OH: 134 QRS: 28 QRSD: 86 T: 19 QT: 344 QTc: 453 Interpretive Statements SINUS TACHYCARDIA QRS(T) CONTOUR ABNORMALITY CONSIDER ANTEROLATERAL MYOCARDIAL DAMAGE CONSIDER INFERIOR MYOCARDIAL DAMAGE POSSIBLY ABNORMAL ECG RI6.01 No previous ECG available for comparison
--- NOTE | 2021-05-05 21:36 | NUR ---
Medications inputted from progress note from MD office. Reviewed medications with grandmotherYuly via telephone.
--- NOTE | 2021-05-05 21:54 | HP ---
ADMIT DATE: 05/05/2021 HISTORY OF PRESENT ILLNESS: This is a 25-year-old female came in with severe shortness of breath over the last 2-3 days, has been increasingly coughing and shortness of breath. The patient's family notes her lips were turning purple. The patient finally was noted to have oxygen saturation in the low 70s. 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 At one time, she also had problems even with her speech, although that seems to have recovered somewhat better than the rest of her body. The patient has quite a bit of pain throughout her body as she has been seen with her nervous system readjusting itself. The patient also has had problems with her bowels and bladder. She is incontinent of such and requires close attention there as well as help with her feedings and the like. Basically unfortunately totally disabled at the present time. The patient's past medical history includes that of most importantly the Guillain-Atwood syndrome. She has had some mild surgery, wisdom teeth removed, otherwise basically unremarkable. She has had childbirth x2. She has had no other major medical problems. Had some respiratory problems, had her COVID Moderna shots back in December. This took place probably starting in early March when she began to have the Guillain-Atwood syndrome. FAMILY HISTORY: Positive for seizures, maternal grandmother with hypertension, COPD, CHF and stroke. ALLERGIES: The patient has no known allergies. MEDICATIONS: The patient's medication list is extensive: Venlafaxine 75 mg 3 capsules daily, senna, Lyrica 200 mg 3 times a day, polyethylene glycol, muscle relaxer 600 mg tablets b.i.d., Zofran p.r.n., metoprolol tartrate 50 mg 1 tablet b.i.d., melatonin 5 mg at bedtime, Zyrtec 10 mg suppository, baclofen 10 mg t.i.d. p.r.n., Tylenol, Protonix 40 mg, Wellbutrin-XL 150 mg daily extended release, buspirone 10 mg tablet b.i.d., Topamax 50 mg b.i.d., ProAir inhaler. SOCIAL HISTORY: The patient has an approximately 15-pack year history of smoking. Denies alcohol or drug use. The patient is a full code. REVIEW OF SYSTEMS: The patient generally has a headache. She denies any blurred vision, double vision. Does have some trouble swallowing and masticating her food. The patient also has severe weakness to both her upper and lower extremities with very poor control of either requires assistance of approximately 2-3 people to get out of bed and has marked limitation in moving, has braces on her lower legs. The patient otherwise mentally seems to be quite astute but control of her motor skills is markedly diminished. PHYSICAL EXAMINATION: GENERAL: A very pleasant white female, cushingoid appearance. VITAL SIGNS: Blood pressure 103/50, respiratory rate 20, pulse up to 124, temperature 99.8. The patient is on 4 liters at 97%. HEENT: The patient's head is atraumatic, normocephalic. Cushingoid is noted. Eyes are PERRL, conjugate. EOMI. Whites are clear. The patient's mouth and throat were normal, has a gag reflex. NECK: Supple. LUNGS: Diminished throughout, poor movement of air. CARDIOVASCULAR: Tachycardic, but sinus. ABDOMEN: Protuberant, soft, diffuse tenderness. No guarding. No rebounding. Positive bowel sounds. No hepatosplenomegaly was noted. EXTREMITIES: No clubbing, cyanosis, no edema. There is marked muscle atrophy to the lower extremities and to the legs themselves and the patient has very little weakness noted in both the upper and lower extremities. Has difficulty with [id number]-vu-gllnvy and establishment guide is fairly good in the upper extremities, but marked weakness in both the proximal and distal muscles. Reflexes hyper brisk in lower and upper extremities. Babinski is positive. NEUROLOGIC: Otherwise, speech is fluent, spontaneous, seems to follow along quite nicely mentally and make further evaluation and judgment accordingly on that. LABORATORY DATA: The patient's labs were indicative of elevated white count of nearly 20,000. There was 27 bands. The patient's chemistry demonstrated 137, 5.3, BUN and creatinine are 13 and 0.9, AST elevated at 56. Cardiac troponins of 0.142 and 0.264. Albumin 3.1. Her lactic acid up from 2.9-3.9. SARS negative. Chest x-ray, CTA demonstrates the fact of no blood clot, but there is bilateral ground-glass alveolar opacities, possibly related to pulmonary edema or atypical pneumonia. Mild mediastinal lymphadenopathy, probably reactive. She denies any chest pain per se. Her EKG was reported out as sinus rhythm, but I do not see a copy in the chart itself. The patient had a CTA, chest x-ray presently. The patient will go back and continue to be monitored on this carefully and make further evaluation on her as indicated with multiplicity of medical problems. IMPRESSION: Sepsis; recovery from Guillain-Atwood syndrome; generalized weakness; muscle atrophy; acute respiratory failure; pneumonia of unspecified etiology, possible atypical pneumonia; hyperkalemia; elevated troponins, possibly secondary to cardiac stress. She has had some sinus tachycardia. As noted, she notes no chest pain. May need repeat EKG and make further evaluation on that as indicated as well as continuing on anticoagulation such as Lovenox and adjust on her home medications, which I believe this list is incorrect as there are multiple duplications of other medications. We will continue on aggressive IV antibiotic therapy and make further assessment as indicated on her as noted above. JUDAH/PORTILLO/YANNA DR: Joel TID: [id number]
[2021-05-05] MEDS: DEXAMETHASONE SOD PHOS 4 MG/ML VIAL. IVP SCH (21:58)
[2021-05-05] MEDS: SENNOSIDES 8.6 MG TABLET PO SCH (21:58)
[2021-05-05] MEDS: ENOXAPARIN 40 MG/0.4 ML SYRINGE. SQ SCH (21:58)
[2021-05-05] MEDS: PREGABALIN 50 MG CAPSULE PO SCH (21:58)
[2021-05-05] MEDS: BACLOFEN 10 MG TABLET PO SCH (21:58)
[2021-05-05] MEDS: IV NORMAL SALINE 1,000ML 1,000 ML IV SCH (22:00)
[2021-05-05 22:50] VITALS: BP 99/50
[2021-05-05] MEDS: MIRTAZAPINE ODT 15 MG TAB.RAPDIS. PO SCH (23:27)
[2021-05-05] MEDS: VENLAFAXINE 75 MG TABLET. PO SCH (23:32)
[2021-05-05] MEDS: PIPERACILLIN/TAZOBACTAM 3.375 GM in IV NORMAL SALINE 50ML 50 ML IV SCH (23:45)
[2021-05-06 05:05] VITALS: BP 110/62
[2021-05-06] MEDS: PIPERACILLIN/TAZOBACTAM 3.375 GM in IV NORMAL SALINE 50ML 50 ML IV SCH ×3 (05:08→18:25)
[2021-05-06] MEDS: oxyCODONE IR 5 MG TABLET PO SCH ×2 (05:08)
[2021-05-06] MEDS ORDERED: IPRATRPIUM/ALBUTEROL 0.5/2.5MG 3 ML NEBU. ONE (05:45)
[2021-05-06] MEDS: IPRATRPIUM/ALBUTEROL 0.5/2.5MG 3 ML NEBU. NEB SCH ×4 (06:14→21:21)
--- NOTE | 2021-05-06 06:31 | EKG ---
[address] [address] Test Date: 2021-05-05 Test Time: 14:09:23 Pat Name: YORDY MARTINES Department: Room: 115 A Gender: F Balance Sheet Analyst: [facility] : 1995 Requested By: ELHAM MALCOLM Order Number: [id number] Reading MD: Hector Anglin Measurements Intervals [place] Rate: 121 P: 41 NH: 130 QRS: 36 QRSD: 82 T: 24 QT: 314 QTc: 449 Interpretive Statements SINUS TACHYCARDIA Electronically Signed On 05-07-2021 11:57:35 CDT by Hector Anglin
[2021-05-06 07:05] LABS: BASO % 0 % (0-3); CALCIUM 8.6 mg/dL (8.5-10.1); CREATININE 0.8 mg/dL (0.6-1.0); EOS % 0 % (0-3); GFR 88.1; HEMOGLOBIN 10.8 g/dL (12.0-15.5); LYMPH # 0.9 x10^3/uL (1.0-4.8); LYMPH % 4 % (24-48); MEAN CORPUSCULAR HEMOGLOBIN 30 pg (25-35); MEAN CORPUSCULAR HGB CONC 33 g/dL (31-37); MEAN CORPUSCULAR VOLUME 92 fL (79-100); MONO # 0.4 x10^3/uL (0.0-1.1); MONO % 2 % (0-9); NEUT # 19.3 x10^3uL (1.8-7.7); NEUT % 94 % (31-73); PLATELET COUNT 317 x10^3/uL (140-400); POTASSIUM 4.6 mmol/L (3.5-5.1); RED BLOOD COUNT 3.59 x10^6/uL (3.50-5.40); RED CELL DISTRIBUTION WIDTH 13.2 % (11.5-14.5); WHITE BLOOD COUNT 20.7 x10^3/uL (4.0-11.0)
[2021-05-06] MEDS ORDERED: IPRATRPIUM/ALBUTEROL 0.5/2.5MG 3 ML NEBU. NEB SCH (08:00)
[2021-05-06] MEDS: DEXAMETHASONE SOD PHOS 4 MG/ML VIAL. IVP SCH ×3 (08:19→21:20)
[2021-05-06] MEDS: CETIRIZINE HCL 10 MG TABLET PO SCH (08:19)
[2021-05-06] MEDS: PREGABALIN 50 MG CAPSULE PO SCH ×3 (08:20→21:20)
[2021-05-06] MEDS: POLYETHYLENE GLYCOL 3350 17 GM PACKET. PO SCH (08:21)
[2021-05-06] MEDS: BACLOFEN 10 MG TABLET PO SCH ×3 (08:21→21:20)
[2021-05-06] MEDS: ENOXAPARIN 40 MG/0.4 ML SYRINGE. SQ SCH ×2 (08:21→21:21)
[2021-05-06] MEDS: IV NORMAL SALINE 1,000ML 1,000 ML IV SCH (08:23)
[2021-05-06] MEDS: PANTOPRAZOLE 40 MG TABLET. PO SCH (08:26)
[2021-05-06] MEDS: VENLAFAXINE 75 MG TABLET. PO SCH ×3 (09:05→21:20)
[2021-05-06] MEDS ORDERED: fentaNYL PF 250 MCG/5 ML VIAL IV PRN (09:15)
--- NOTE | 2021-05-06 10:27 | CARD ---
MR#: [id number] Date of Study: 05/06/2021 Ordering Physician: ELHAM MALCOLM, Referring Physician: ELHAM MALCOLM, Tech: Lilli Perry, [facility] APPROVED REPORT EXAM: Two-dimensional and M-mode echocardiogram with Doppler and color Doppler. Other Information Quality : AverageHR: 120bpm Technically limited study due to body habitus. INDICATION Dyspnea RISK FACTORS Hypertension 2D DIMENSIONS RVDd2.2 (2.9-3.5cm)Left Atrium(2D)2.8 (1.6-4.0cm) IVSd0.8 (0.7-1.1cm)Aortic Root(2D)2.3 (2.0-3.7cm) LVDd4.8 (3.9-5.9cm)LVOT Diameter1.9 (1.8-2.4cm) PWd0.8 (0.7-1.1cm)LVDs3.3 (2.5-4.0cm) FS (%) 31.1 %SV63.3 ml LVEF(%)58.8 (>50%) Aortic Valve AoV Peak Jair.182.5cm/sAoV VTI31.4cm AO Peak GR.13.3mmHgLVOT Peak Jair.116.2cm/s LVOT VTI 23.56cmAO Mean GR.7mmHg BRIANNA (VMAX)1.75il9AMT (VTI)2.15cm2 Pulmonary Valve PV Peak Yaisfulo057.2cm/sPV Peak Grad.4mmHg Tricuspid Valve TR P. Qunecsux118je/sRAP [id number] TR Peak Gr.28zbLiGXWW21sjLg LEFT VENTRICLE The left ventricle is normal size. There is normal left ventricular wall thickness. The left ventricu lar systolic function is normal and the ejection fraction is within normal range. The Ejection Fracti on is 50-55%. There is normal LV segmental wall motion. Tissue Doppler imaging reveals moderate left ventricular diastolic dysfunction. RIGHT VENTRICLE The right ventricle is moderately dilated. There is normal right ventricular wall thickness. The righ t ventricular systolic function is normal. ATRIA The left atrium size is normal. The right atrium size is normal. The interatrial septum is intact wit h no evidence for an atrial septal defect or patent foramen ovale as noted on 2-D or Doppler imaging. AORTIC VALVE The aortic valve is normal in structure and function. Doppler and Color Flow revealed no significant aortic regurgitation. There is no significant aortic valvular stenosis. Calculated aortic valve area is 2.1 cm2 with maximum pressure gradient of 14 mmHg and mean pressure gradient of 7 mmHg. MITRAL VALVE The mitral valve is normal in structure and function. There is no evidence of mitral valve prolapse. There is no mitral valve stenosis. Doppler and Color-flow revealed trace mitral regurgitation. TRICUSPID VALVE The tricuspid valve is normal in structure and function. Doppler and Color Flow revealed trace tricus pid regurgitation with an estimated PAP of 54 mmHg. There is no tricuspid valve stenosis. PULMONIC VALVE The pulmonic valve is not well visualized. Doppler and Color Flow revealed no pulmonic valvular regur gitation. There is no pulmonic valvular stenosis. GREAT VESSELS The aortic root is normal in size. The ascending aorta is normal in size. The IVC is normal in size a nd collapses >50% with inspiration. PERICARDIAL EFFUSION There is no evidence of significant pericardial effusion. Critical Notification Critical Value: No <Conclusion> The left ventricular systolic function is normal and the ejection fraction is within normal range. Th e Ejection Fraction is 50-55%. There is normal LV segmental wall motion. The right ventricle is moderately dilated. Doppler and Color Flow revealed trace tricuspid regurgitation with an estimated PAP of 54 mmHg. Signed by : Naman Zacarias, Electronically Approved : 05/06/2021 10:27:01
[2021-05-06] MEDS ORDERED: fentaNYL 50MCG/HR 1 PATCH PATCH TD SCH (13:30)
--- NOTE | 2021-05-06 13:32 | NUR ---
Nursing Note Cardiology Consult This nurse called for a cardiology consult at 1330. This nurse talked to Fatoumata Lakhani.
[2021-05-06] MEDS: AA 3%/ELECTROLYTE-TPN SOLN/GLY 1,000 ML IV SCH (13:39)
--- NOTE | 2021-05-06 14:15 | RAD ---
Exam Date: 05/06/2021 1:31 PM US DPLX VENOUS EXTREMITY UPPER RT Indication: Reason: pain in the right arm / Spl. Instructions: / History: . PROCEDURE: RIGHT UPPER EXTREMITY VENOUS ULTRASOUND/COLOR DOPPLER WITH SPECTRAL WAVEFORM ANALYSIS HISTORY: Arm swelling TECHNIQUE: Grayscale sonogram, color Doppler, and spectral Doppler waveform analysis of the upper ex tremity venous system was performed, including the internal jugular vein and arm veins. FINDINGS: The internal jugular, subclavian, axillary, brachial, cephalic, basilic, and radial and ul dolores veins show normal compressibility and/or normal color Doppler flow, normal spontaneous phasic wav eforms, or normal response to augmentation. No visible thrombus is seen. IMPRESSION: No evidence for DVT in the right upper extremity. Electronically signed by: Wiliam Grace MD (05/06/2021 2:12 PM) [id number]
--- NOTE | 2021-05-06 15:35 | RAD ---
XR CHEST 1V History: Reason: SHORTNESS OF BREATH / Spl. Instructions: / History: Comparison: May 05, 2021 Findings: Multifocal ill-defined opacities, unchanged. No pleural effusion. No pneumothorax. Normal heart size. Impression: 1. Stable appearance the chest compared to prior. Electronically signed by: Valeriy Baxter DO (05/06/2021 3:32 PM) [id number]
[2021-05-06 16:16] VITALS: BP 116/76
--- NOTE | 2021-05-06 16:44 | NUR ---
Order Verified Yes Consent signed Yes Previous PICC placement NO Past Medical/Surgical history and current diagnosis reviewed Yes Patient Medical /Surgical History Related to PICC line placement None Special considerations for PICC line placement pt complained of right arm tender, inserted picc in left arm PICC placement indication half-way antibiotic usage, Name of PICC Nurse Zoran ROGEL
--- NOTE | 2021-05-06 16:45 | NUR ---
Procedure: Following complete explanation of the PICC procedure including the indications, risks, and potential complications, informed consent was obtained. The possibility for infection was discussed along with signs, symptoms, and prevention. All the patient's questions were answered. IV Device Protocol was used. Written and verbal patient education was provided. Hand hygiene performed. Standardized central line checklist was utilized. The patient was placed in the supine position, the left arm was prepped with chlorhexidine and patient draped with maximum sterile barrier. 1.5 mL 1% lidocaine was infiltrated into the skin to provide local anesthesia. A thorough assessment of left upper extremity completed. Using real-time ultrasound guidance and standardized micro puncture set, the basilic vein was punctured and a peel away sheath was placed using the modified Seldinger technique. A tip location device was used to ensure adequate catheter placement. The catheter was secured using a securement device and an antimicrobial patch was applied directly on the insertion site followed by a transparent dressing. The port withdrew blood and flushed without resistance. Patient tolerated the procedure without apparent complication. A single Lumen Power PICC placement successful and uncomplicated. Placement verified by EKG tip confirmation system and green p wave and caroline observed. Tip located in the low SVC per 3 CG Complications: None
[2021-05-06] MEDS: AZITHROMYCIN 500 MG in IV NORMAL SALINE 250ML 250 ML IV SCH (16:49)
--- NOTE | 2021-05-06 18:24 | NUR ---
NURSING NOTE PT WAS IN HER ROOM THIS AM UPON ASSESSMENT AND MEDICATION ADMINISTRATION. PT LETHARGIC AND NOT FEELING WELL. PT STATES SHE IS HOT AND REQUEST THE FAN. PT OXYGEN TUBING WAS FOUND NOT HOOKED UP TO OXYGEN AND SHUT OFF. PT NEBULIZER WAS HOOKED UP AND SHUT OFF. THIS NURSE ASSESSED PT OXYGEN LEVEL AT 71%. PT OXGYEN TUBING HOOKED UP AND PLACED PT BACK ON 4 L NC. PT OXYGEN RETURNED TO 93% WITHIN [address] WRIGHT AT BEDSIDE TO EVALUATE PT. ORDERS FOR FENTANYL PATCH OBTAINED. CONSULT FOR CARDIOLOGY OBTAINED AND HAS BEEN CALLED. PT HAS REDNESS AND HOT TO TOUCH ON RIGHT ARM. DR MALCOLM HAS BEEN NOTIFIED. JUAN F REDDING.
[2021-05-06 19:29] VITALS: BP 102/50
[2021-05-06] MEDS: LACTOBACILLUS RHAMNOSUS GG 1 CAPSULE. PO SCH (21:20)
[2021-05-06] MEDS: SENNOSIDES 8.6 MG TABLET PO SCH (21:20)
[2021-05-06] MEDS: MIRTAZAPINE ODT 15 MG TAB.RAPDIS. PO SCH (21:20)
--- NOTE | 2021-05-06 23:35 | PN ---
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 The patient is perhaps a little bit better today. She is vacillating between 4 and 2 liters per nasal cannula in the low 90s. She is afebrile. She had some inflammation to her right lower arm. Venous Doppler was negative there. Otherwise, the patient still is markedly weaken throughout her entire bodies. She is receiving PT, OT. Continue on IV antibiotic therapy of Zithromax and Zosyn. The patient has been helping fat, although her appetite is not very good. She has had severe pain and had a switch over to Fentanyl and Duragesic patch as well. OBJECTIVE: VITAL SIGNS: Blood pressure 116/76, respiratory rate 15, pulse 80, afebrile. GENERAL: The patient is alert and oriented, but speech very weak. LUNGS: Diminished, primarily in the bases. CARDIOVASCULAR: The CVR exam was tachycardic. ABDOMEN: Soft, nontender. No rebounding or guarding. Positive bowel sounds. EXTREMITIES: Marked atrophy as indicated earlier. LABORATORY DATA: The patient's white count actually has gone up to 20,000, but is on some steroids for her breathing. The patient's cardiac enzymes are coming down. BNP of 2800. The patient's SARS-PCR is negative. The patient's drug screen negative. We will continue with present drug regimen. Dr. Zacarias has been kind enough to review the patient for the possibility of congestive heart failure. Her echocardiogram shows normal left ventricular function of 50-55%, so will continue to monitor her carefully on that issue there. 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 PLAN: Continue to monitor the patient. Continue on IV antibiotic therapy and make further evaluation on her as indicated. JUDAH/ALEJANDRA DR: JUDAH/nathalia TID: [id number]
[2021-05-07] MEDS: PIPERACILLIN/TAZOBACTAM 3.375 GM in IV NORMAL SALINE 50ML 50 ML IV SCH ×4 (00:19→18:09)
[2021-05-07 00:23] VITALS: BP 130/74
[2021-05-07] MEDS: AA 3%/ELECTROLYTE-TPN SOLN/GLY 1,000 ML IV SCH (05:26)
[2021-05-07] MEDS: IPRATRPIUM/ALBUTEROL 0.5/2.5MG 3 ML NEBU. NEB SCH ×3 (05:28→15:35)
[2021-05-07 06:31] LABS: BASO % 0 % (0-3); EOS % 0 % (0-3); HEMATOCRIT 33.5 % (36.0-47.0); HEMOGLOBIN 10.9 g/dL (12.0-15.5); LYMPH % 5 % (24-48); MEAN CORPUSCULAR HEMOGLOBIN 30 pg (25-35); MEAN CORPUSCULAR HGB CONC 33 g/dL (31-37); MEAN CORPUSCULAR VOLUME 91 fL (79-100); MONO # 0.6 x10^3/uL (0.0-1.1); MONO % 3 % (0-9); NEUT # 18.3 x10^3uL (1.8-7.7); NEUT % 92 % (31-73); PLATELET COUNT 319 x10^3/uL (140-400); RED BLOOD COUNT 3.67 x10^6/uL (3.50-5.40); RED CELL DISTRIBUTION WIDTH 13.1 % (11.5-14.5); WHITE BLOOD COUNT 19.9 x10^3/uL (4.0-11.0)
[2021-05-07 06:32] LABS: CREATININE 0.6 mg/dL (0.6-1.0); GFR 122.8
[2021-05-07 07:06] VITALS: BP 132/74
[2021-05-07] MEDS: POLYETHYLENE GLYCOL 3350 17 GM PACKET. PO SCH (08:34)
[2021-05-07] MEDS: DEXAMETHASONE SOD PHOS 4 MG/ML VIAL. IVP SCH ×2 (08:34→14:08)
[2021-05-07] MEDS: ENOXAPARIN 40 MG/0.4 ML SYRINGE. SQ SCH (08:35)
[2021-05-07] MEDS: LACTOBACILLUS RHAMNOSUS GG 1 CAPSULE. PO SCH (08:35)
[2021-05-07] MEDS: BACLOFEN 10 MG TABLET PO SCH ×2 (08:35→14:07)
[2021-05-07] MEDS: PREGABALIN 50 MG CAPSULE PO SCH ×2 (08:35→14:08)
[2021-05-07] MEDS: PANTOPRAZOLE 40 MG TABLET. PO SCH (08:35)
[2021-05-07] MEDS: CETIRIZINE HCL 10 MG TABLET PO SCH (08:35)
[2021-05-07] MEDS: VENLAFAXINE 75 MG TABLET. PO SCH ×2 (08:36→14:07)
--- NOTE | 2021-05-07 08:41 | PDOC2 ---
CARDIAC CONSULT DATE OF CONSULT DOS: DATE: 05/07/21 TIME: 08:25 REASON FOR CONSULT Reason for Consult CHF REFERRING PHYSICIAN Referring Physician Dr. Sampson SOURCE Source: Chart review, Patient HPI History of Present Illness This is a 25 yo female who presented secondary to shortness of breath and fatigue over the last several days. 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 Was discharge d home one week ago. She developed shortness of breath on Wednesday. Has progressively worsened. Family noted her lips were turning purple. Oxygen saturation was noted in the low 70's. She denies any chest pain, dizziness, diaphoresis, nausea/vomiting, or fevers. She has had a prolonged period of decreased mobility due to her Guillain-Asif. PAST MEDICAL HISTORY Past Medical History Guillain-Asif. Cardiovascular: HTN, Other (SVT) Pulmonary: Other (J LUIS) CENTRAL NERVOUS SYSTEM: Periperal neuropathy, Seizure GI: GERD Psych: Anxiety, Depression PAST SURGICAL HISTORY Past Surgical History: No pertinent history FAMILY HISTORY Family History: Heart Disease SOCIAL HISTORY Smoke: <1 pack per day ALCOHOL: none Drugs: None Lives: with Family CURRENT MEDICATIONS Current Medications Current Medications Sodium Chloride 1,000 ml @ 1,000 mls/hr 1X ONCE IV Last administered on 05/05/21at 14:15; Start 05/05/21 at 14:15; Stop 05/05/21 at 15:14; Status DC Sodium Chloride 1,000 ml @ 1,000 mls/hr 1X ONCE IV ; Start 05/05/21 at 14:15; Stop 05/05/21 at 15:14; Status DC Iohexol (Omnipaque 350 Mg/ml) 100 ml 1X ONCE IV ; Start 05/05/21 at 14:15; Stop 05/05/21 at 14:19; Status DC Morphine Sulfate (Morphine 4mg Syringe) 4 mg 1X ONCE IV Last administered on 05/05/21at 15:22; Start 05/05/21 at 14:45; Stop 05/05/21 at 14:46; Status DC Ondansetron HCl (Zofran) 4 mg 1X ONCE IVP Last administered on 05/05/21at 15:23; Start 05/05/21 at 14:45; Stop 05/05/21 at 14:46; Status DC Azithromycin 500 mg/Sodium Chloride 250 ml @ 250 mls/hr 1X ONCE IV Last administered on 05/05/21at 17:22; Start 05/05/21 at 16:30; Stop 05/05/21 at 17:29; Status DC Ceftriaxone Sodium 1 gm/ Sodium Chloride 50 ml @ 100 mls/hr 1X ONCE IV Last administered on 05/05/21at 16:51; Start 05/05/21 at 16:30; Stop 05/05/21 at 16:59; Status DC Sodium Chloride 250 ml @ As Directed STK-MED ONCE .ROUTE ; Start 05/05/21 at 16:37; Stop 05/05/21 at 16:37; Status DC Sodium Chloride 50 ml @ As Directed STK-MED ONCE .ROUTE ; Start 05/05/21 at 16:37; Stop 05/05/21 at 16:37; Status DC Azithromycin (Zithromax) 500 mg STK-MED ONCE IV ; Start 05/05/21 at 16:37; Stop 05/05/21 at 16:37; Status DC Ceftriaxone Sodium (Rocephin) 1 gm STK-MED ONCE .ROUTE ; Start 05/05/21 at 16:37; Stop 05/05/21 at 16:37; Status DC Sodium Chloride 50 ml @ As Directed STK-MED ONCE .ROUTE ; Start 05/05/21 at 16:37; Stop 05/05/21 at 16:37; Status DC Ondansetron HCl (Zofran) 4 mg PRN Q4HRS PRN IVP NAUSEA/VOMITING; Start 05/05/21 at 17:00; Stop 05/06/21 at 16:59; Status DC Acetaminophen (Tylenol) 650 mg PRN Q4HRS PRN PO FEVER > 100.3'F; Start 05/05/21 at 17:00; Stop 05/06/21 at 07:02; Status DC Morphine Sulfate (Morphine 4mg Syringe) 4 mg 1X ONCE IV ; Start 05/05/21 at 17:00; Stop 05/05/21 at 17:01; Status DC Azithromycin 500 mg/Sodium Chloride 250 ml @ 250 mls/hr Q24H IV Last administered on 05/06/21at 16:49; Start 05/06/21 at 16:00 Dexamethasone Sodium Phosphate (Decadron) 4 mg TID IVP Last administered on 05/06/21at 21:20; Start 05/05/21 at 21:00 Zolpidem Tartrate (Ambien) 5 mg PRN QHS PRN PO INSOMNIA, MAY REPEAT IN 1HR; Start 05/05/21 at 20:00 Enoxaparin Sodium (Lovenox 40mg Syringe) 40 mg BID SQ Last administered on 05/06/21at 21:21; Start 05/05/21 at 21:00 Piperacillin Sod/ Tazobactam Sod (Zosyn Per Pharmacy) 1 each PRN DAILY PRN MC SEE COMMENTS; Start 05/05/21 at 20:15 Albuterol/ Ipratropium (Duoneb) 3 ml RTQID NEB Last administered on 05/07/21at 05:28; Start 05/06/21 at 08:00 Albuterol/ Ipratropium (Duoneb) 3 ml RTQID NEB ; Start 05/06/21 at 08:00; Status UNV Piperacillin Sod/ Tazobactam Sod 3.375 gm/Sodium Chloride 50 ml @ 100 mls/hr Q6HRS IV Last administered on 05/07/21at 06:21; Start 05/06/21 at 00:00 Acetaminophen (Tylenol) 650 mg PRN Q4HRS PRN PO MILD PAIN / TEMP > 100.3'F Last administered on 05/06/21at 09:47; Start 05/05/21 at 20:30 Baclofen (Lioresal) 10 mg TID PO Last administered on 05/06/21at 21:20; Start 05/05/21 at 21:00 Bisacodyl (Dulcolax Supp) 10 mg PRN DAILY PRN RC CONSTIPATION Last administered on 05/06/21at 21:20; Start 05/05/21 at 20:30 Cetirizine HCl (ZyrTEC) 10 mg DAILY PO Last administered on 05/06/21at 08:19; Start 05/06/21 at 09:00 Mirtazapine (Remeron Hannah-Tab) 15 mg QHS PO Last administered on 05/06/21at 21:20; Start 05/05/21 at 21:00 Ondansetron HCl (Zofran Odt) 4 mg PRN Q6HRS PRN PO NAUSEA/VOMITING; Start 05/05/21 at 20:30 Polyethylene Glycol (miraLAX) 17 gm DAILY PO Last administered on 05/06/21at 08:21; Start 05/06/21 at 09:00 Sennosides (Senna) 8.6 mg HS PO Last administered on 05/06/21at 21:20; Start 05/05/21 at 21:00 Melatonin (Melatonin) 6 mg PRN QHS PRN PO INSOMNIA Last administered on 05/06/21at 22:41; Start 05/05/21 at 20:45 Pantoprazole Sodium (Protonix) 40 mg DAILYAC PO Last administered on 05/06/21at 08:26; Start 05/06/21 at 07:30 Oxcarbazepine (Trileptal) 600 mg BID PO Last administered on 05/06/21at 21:20; Start 05/05/21 at 21:00 Oxycodone HCl (Roxicodone) 20 mg Q6HRS PO Last administered on 05/06/21at 05:08; Start 05/06/21 at 00:00; Stop 05/06/21 at 09:12; Status DC Pregabalin (Lyrica) 200 mg TID PO Last administered on 05/06/21at 21:20; Start 05/05/21 at 21:00 Venlafaxine HCl (Effexor) 75 mg TID PO Last administered on 05/06/21at 21:20; Start 05/05/21 at 21:00 Sodium Chloride 1,000 ml @ 100 mls/hr Q10H IV Last administered on 05/06/21at 08:23; Start 05/05/21 at 22:00; Stop 05/06/21 at 13:15; Status DC Albuterol/ Ipratropium (Duoneb) 3 ml STK-MED ONCE .ROUTE ; Start 05/06/21 at 05:45; Stop 05/06/21 at 05:45; Status DC Lactobacillus Rhamnosus (Culturelle) 1 cap BID PO Last administered on 05/06/21at 21:20; Start 05/06/21 at 21:00 Fentanyl Citrate (Fentanyl 5ml Vial) 50 mcg PRN Q2HR PRN IV SEVERE OR PERSISTANANT PAIN; Start 05/06/21 at 09:15; Stop 05/06/21 at 09:38; Status DC Fentanyl Citrate (Fentanyl 2ml Vial) 50 mcg PRN Q2HR PRN IV SEVERE OR PERSISTANANT PAIN Last administered on 05/07/21at 06:21; Start 05/06/21 at 09:45 Amino Acids/ Glycerin/ Electrolytes 1,000 ml @ 80 mls/hr [id number] IV Last administered on 05/07/21at 05:26; Start 05/06/21 at 13:15 Fentanyl (Duragesic 50mcg/ Hr) 1 patch Q3DAYS TD Last administered on 05/06/21at 13:39; Start 05/06/21 at 13:30 Lorazepam (Ativan Inj) 2 mg PRN Q8HRS PRN IVP ANXIETY / AGITATION; Start 05/06/21 at 13:30 Active Scripts Active Reported Tylenol (Acetaminophen) 325 Mg Tablet 2 Tab PO PRN Q4HRS Baclofen 10 Mg Tablet 1 Tab PO TID Bisacodyl 10 Mg Supp.rect 10 Mg RC PRN DAILY PRN Cetirizine Hcl 10 Mg Tablet 1 Tab PO DAILY Melatonin 5 Mg Tab.rapdis 1 Tab PO QHS 30 Days Mirtazapine 15 Mg Tab.rapdis 1 Tab PO QHS 30 Days Oxcarbazepine 600 Mg Tablet 1 Tab PO BID 30 Days Oxycodone Hcl 5 Mg Capsule 20 Mg PO Q6HRS Miralax (Polyethylene Glycol 3350) 17 Gm Powd.pack 1 Packet PO DAILY 2 Days dissolve in water Lyrica (Pregabalin) 200 Mg Capsule 1 Cap PO TID Senna Laxative (Sennosides) 8.6 Mg Tablet 1 Tab PO HS 30 Days Venlafaxine Hcl Er (Venlafaxine Hcl) 75 Mg Tab.er.24 3 Tab PO DAILY 30 Days Metoprolol Tartrate 25 Mg Tablet 50 Mg PO BID Prilosec Otc (Omeprazole Magnesium) 20 Mg Tablet.dr 40 Mg PO DAILY Ondansetron Odt (Ondansetron) 4 Mg Tab.rapdis 4 Mg PO PRN Q6HRS PRN ALLERGIES Allergies: Coded Allergies: No Known Allergies (Verified Allergy, Unknown, 02/11/21) ROS Review of Systems 14 point ROS conducted with pertinent positives noted above in HPI PHYSICAL EXAM General: Alert, Oriented X3, Cooperative, No acute distress HEENT: Atraumatic, Mucous membr. moist/pink Lungs: Other (diminished bases) Heart: Regular rate Abdomen: Soft, No tenderness Extremities: No edema, Normal pulses Skin: No rashes, No breakdown Neuro: Normal speech, Sensation intact Psych/Mental Status: Mental status NL, Mood NL MUSCULOSKELETAL: Abn muscle strength of (bilateral extremities ) VITALS Vital Signs Vital Signs Date Time Temp Pulse Resp B/P (MAP) Pulse Ox O2 Delivery O2 Flow Rate FiO2 05/07/21 07:06 97.4 82 20 132/74 (93) 95 Nasal Cannula 4.0 LABS LABS Laboratory Tests Test 05/05/21 14:08 05/05/21 15:54 05/05/21 16:40 05/05/21 19:23 White Blood Count 19.8 x10^3/uL (4.0-11.0) Red Blood Count 4.12 x10^6/uL (3.50-5.40) Hemoglobin 12.6 g/dL (12.0-15.5) Hematocrit 37.9 % (36.0-47.0) Mean Corpuscular Volume 92 fL (79-100) Mean Corpuscular Hemoglobin 31 pg (25-35) Mean Corpuscular Hemoglobin Concent 33 g/dL (31-37) Red Cell Distribution Width 13.0 % (11.5-14.5) Platelet Count 356 x10^3/uL (140-400) Neutrophils (%) (Auto) 91 % (31-73) Lymphocytes (%) (Auto) 7 % (24-48) Monocytes (%) (Auto) 2 % (0-9) Eosinophils (%) (Auto) 0 % (0-3) Basophils (%) (Auto) 0 % (0-3) Neutrophils # (Auto) 18.0 x10^3uL (1.8-7.7) Lymphocytes # (Auto) 1.3 x10^3/uL (1.0-4.8) Monocytes # (Auto) 0.5 x10^3/uL (0.0-1.1) Eosinophils # (Auto) 0.0 x10^3/uL (0.0-0.7) Basophils # (Auto) 0.1 x10^3/uL (0.0-0.2) Segmented Neutrophils % 52 % (35-66) Band Neutrophils % 27 % (0-9) Lymphocytes % 5 % (24-48) Atypical Lymphocytes % (Manual) 4 % (0-0) Monocytes % 6 % (0-10) Eosinophils % 2 % (0-5) Metamyelocytes % 4 % (0-0) Platelet Estimate Increased (ADEQUATE) Large Platelets Few Sodium Level 137 mmol/L (136-145) Potassium Level 5.3 mmol/L (3.5-5.1) Chloride Level 101 mmol/L (98-107) Carbon Dioxide Level 26 mmol/L (21-32) Anion Gap 10 (6-14) Blood Urea Nitrogen 13 mg/dL (7-20) Creatinine 0.9 mg/dL (0.6-1.0) Estimated GFR (Cockcroft-Gault) 76.9 BUN/Creatinine Ratio 14 (6-20) Glucose Level 92 mg/dL (70-99) Lactic Acid Level 2.9 mmol/L (0.4-2.0) 3.9 mmol/L (0.4-2.0) Calcium Level 8.9 mg/dL (8.5-10.1) Total Bilirubin 0.3 mg/dL (0.2-1.0) Aspartate Amino Transf (AST/SGOT) 56 U/L (15-37) Alanine Aminotransferase (ALT/SGPT) 32 U/L (14-59) Alkaline Phosphatase 104 U/L (46-116) Troponin I Quantitative 0.142 ng/mL (0-0.055) 0.264 ng/mL (0-0.055) Total Protein 6.5 g/dL (6.4-8.2) Albumin 3.1 g/dL (3.4-5.0) Albumin/Globulin Ratio 0.9 (1.0-1.7) Mycoplasma Serology (LAB) Negative (NEGATIVE) Urine Collection Type U cath Urine Color Yellow Urine Clarity Clear Urine pH 5.5 Urine Specific [place] <=1.005 Urine Protein Neg (NEG-TRACE) Urine Glucose (UA) 100 mg/dL (NEG) Urine Ketones (Stick) Neg mg/dL (NEG) Urine Blood Neg (NEG) Urine Nitrite Neg (NEG) Urine Bilirubin Neg (NEG) Urine Urobilinogen Dipstick 0.2 mg/dL (0.2 mg/dL) Urine Leukocyte Esterase Neg (NEG) Urine RBC 0 /HPF (0-2) Urine WBC Occ /HPF (0-4) Urine Squamous Epithelial Cells Occ /LPF Urine Bacteria Few /HPF (0-FEW) Urine Hyaline Casts Mod /HPF Urine Mucus Slight /LPF Urine Opiates Screen Pos (NEG) Urine Methadone Screen Neg (NEG) Urine Barbiturates Neg (NEG) Urine Phencyclidine Screen Neg (NEG) Urine Amphetamine/Methamphetamine Neg (NEG) Urine Benzodiazepines Screen Neg (NEG) Urine Cocaine Screen Neg (NEG) Urine Cannabinoids Screen Neg (NEG) Urine Ethyl Alcohol Neg (NEG) Coronavirus (COVID-19)(PCR) Negative (NEGATIVE) SARS-CoV-2 Antigen (Rapid) Negative (NEGATIVE) SH-Zki-M-Type Natriuretic Peptide 2810 pg/mL (0-124) Test 05/06/21 05:00 05/06/21 05:58 05/07/21 05:42 C-Reactive Protein 293.3 mg/L (0-3.3) White Blood Count 20.7 x10^3/uL (4.0-11.0) 19.9 x10^3/uL (4.0-11.0) Red Blood Count 3.59 x10^6/uL (3.50-5.40) 3.67 x10^6/uL (3.50-5.40) Hemoglobin 10.8 g/dL (12.0-15.5) 10.9 g/dL (12.0-15.5) Hematocrit 33.0 % (36.0-47.0) 33.5 % (36.0-47.0) Mean Corpuscular Volume 92 fL (79-100) 91 fL (79-100) Mean Corpuscular Hemoglobin 30 pg (25-35) 30 pg (25-35) Mean Corpuscular Hemoglobin Concent 33 g/dL (31-37) 33 g/dL (31-37) Red Cell Distribution Width 13.2 % (11.5-14.5) 13.1 % (11.5-14.5) Platelet Count 317 x10^3/uL (140-400) 319 x10^3/uL (140-400) Neutrophils (%) (Auto) 94 % (31-73) 92 % (31-73) Lymphocytes (%) (Auto) 4 % (24-48) 5 % (24-48) Monocytes (%) (Auto) 2 % (0-9) 3 % (0-9) Eosinophils (%) (Auto) 0 % (0-3) 0 % (0-3) Basophils (%) (Auto) 0 % (0-3) 0 % (0-3) Neutrophils # (Auto) 19.3 x10^3uL (1.8-7.7) 18.3 x10^3uL (1.8-7.7) Lymphocytes # (Auto) 0.9 x10^3/uL (1.0-4.8) 1.0 x10^3/uL (1.0-4.8) Monocytes # (Auto) 0.4 x10^3/uL (0.0-1.1) 0.6 x10^3/uL (0.0-1.1) Eosinophils # (Auto) 0.0 x10^3/uL (0.0-0.7) 0.0 x10^3/uL (0.0-0.7) Basophils # (Auto) 0.0 x10^3/uL (0.0-0.2) 0.0 x10^3/uL (0.0-0.2) Sodium Level 145 mmol/L (136-145) 145 mmol/L (136-145) Potassium Level 4.6 mmol/L (3.5-5.1) 5.0 mmol/L (3.5-5.1) Chloride Level 108 mmol/L (98-107) 108 mmol/L (98-107) Carbon Dioxide Level 29 mmol/L (21-32) 28 mmol/L (21-32) Anion Gap 8 (6-14) 9 (6-14) Blood Urea Nitrogen 11 mg/dL (7-20) 10 mg/dL (7-20) Creatinine 0.8 mg/dL (0.6-1.0) 0.6 mg/dL (0.6-1.0) Estimated GFR (Cockcroft-Gault) 88.1 122.8 Glucose Level 101 mg/dL (70-99) 112 mg/dL (70-99) Calcium Level 8.6 mg/dL (8.5-10.1) 9.0 mg/dL (8.5-10.1) Creatine Kinase 727 U/L (26-192) Troponin I Quantitative 0.126 ng/mL (0-0.055) ECHOCARDIOGRAM Echocardiogram <Conclusion> The left ventricular systolic function is normal and the ejection fraction is within normal range. The Ejection Fraction is 50-55%. There is normal LV segmental wall motion. The right ventricle is moderately dilated. Doppler and Color Flow revealed trace tricuspid regurgitation with an estimated PAP of 54 mmHg. DATE: 05/06/21 1015 ASSESSMENT/PLAN Assessment/Plan 1. Acute respiratory failure with PNA and acute diastolic CHF; Echo with preserved LV systolic function. The RV is moderately dilated. PAP of 54 mmHg. 2. Leukocytosis, lactic acidosis, low-grade fevers 3. Mild troponin elevation; peak 0.2. Most probably type II, demand ischemia 4. 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 Sinus tachycardia; reactive to above. Presently maintaining SR 6. H/o SVT; on metoprolol for rate control 7. Tobaccoism Recommendations Ongoing lung optimization, treatment of PNA Will give dose of IV Lasix Continue metoprolol for rate control Rehab modalities Supportive care MAVERICK HUANG APRN May 07, 2021 08:41
[2021-05-07] MEDS ORDERED: PHENYLEPH/MINERAL OIL/PETROLAT RECTAL OINTMENT TUBE. RC PRN (09:00)
[2021-05-07] MEDS ORDERED: FUROSEMIDE 40 MG/4 ML VIAL IVP ONE (09:15)
[2021-05-07] MEDS ORDERED: NALOXONE 0.4 MG/ML VIAL. IV PRN (10:00)
[2021-05-07 10:38] VITALS: BP 134/85
--- NOTE | 2021-05-07 10:57 | RAD ---
INDICATION: Reason: COUGH, SOA / Spl. Instructions: / History: COMPARISON: May 06, 2020 FINDINGS: Single view of chest obtained. Cardiac silhouette is mildly prominent but similar to prior. Left-sided PICC line with tip at the expected location of atriocaval junction. Left greater than right pulmonic opacities which appears increased from prior IMPRESSION: * Left greater than right pulmonic opacities which appears slightly increased from prior. Differenti al considerations would include infectious etiology including from viral/atypical organism with anoth er possible cause including asymmetric edema. Electronically signed by: Jeff Quiroz MD (05/07/2021 10:55 AM) [id number]
--- NOTE | 2021-05-07 11:03 | RAD ---
INDICATION: Reason: UNEQUAL PUPILS / Spl. Instructions: / History: COMPARISON: February 11, 2021 TECHNIQUE: Axial CT images obtained through the head without intravenous contrast. One or more of the following individualized dose reduction techniques were utilized for this examinat ion: 1. Automated exposure control; 2. Adjustment of the mA and/or kV according to patient size; 3 . Use of iterative reconstruction technique. FINDINGS: No intracranial hemorrhage. No midline shift. Basal cisterns patent. Ventricles and sulci are unremarkable. No acute osseous abnormality. Orbits and paranasal sinuses unremarkable. IMPRESSION: * No acute intracranial hemorrhage. Electronically signed by: Jeff Quiroz MD (05/07/2021 11:01 AM) [id number]
[2021-05-07 15:03] VITALS: BP 112/72
[2021-05-07] MEDS: AZITHROMYCIN 500 MG in IV NORMAL SALINE 250ML 250 ML IV SCH (16:17)
[2021-05-07 19:35] VITALS: BP 127/84
--- NOTE | 2021-05-07 19:43 | NUR ---
PT discharged in stable condition to EMS. PT with telemetry still applied at time of discharge. EMS notified to retrieve.
== END 2021-05-07 19:47 | disposition short-term general hospital (02) | DRG 871 ==
LOC: ER 14:00 → 1 SOUTH 17:15
PROVIDERS: ADMIT Family Medicine; ATTEND Family Medicine
PROC: 02HV33Z Insertion of Infusion Device into Superior Vena Cava, Percutaneous Approach (ICD-10-PCS; principal; 2021-05-06)
DX: A41.9 Sepsis, unspecified organism (principal); I50.31 Acute diastolic (congestive) heart failure; J96.01 Acute respiratory failure with hypoxia; J15.9 Unspecified bacterial pneumonia; J15.6 Pneumonia due to other Gram-negative bacteria; G61.0 Guillain-Barre syndrome; F17.210 Nicotine dependence, cigarettes, uncomplicated; I11.0 Hypertensive heart disease with heart failure; F32.9 Major depressive disorder, single episode, unspecified; F41.9 Anxiety disorder, unspecified; G43.909 Migraine, unspecified, not intractable, without status migrainosus; G47.33 Obstructive sleep apnea (adult) (pediatric); G62.9 Polyneuropathy, unspecified; K21.9 Gastro-esophageal reflux disease without esophagitis; M62.50 Muscle wasting and atrophy, not elsewhere classified, unspecified site; E66.9 Obesity, unspecified; Z82.3 Family history of stroke; Z82.49 Family history of ischemic heart disease and other diseases of the circulatory system; Z82.5 Family history of asthma and other chronic lower respiratory diseases; Z68.39 Body mass index [BMI] 39.0-39.9, adult
CPT/HCPCS: 36415; 36569; 70450; 71045; 71275; 80048; 80053; 80307; 81001; 82550; 83605; 83880; 84145; 84484; 85007; 85025; 86140; 86738; 87040; 87426; 93005; 93306; 93971; 94640; 94760; 96361; 96365; 96375; J0456; J0696; J1100; J1650; J1940; J2270; J2405; J2543; J3010; J7050; U0003; 97530; 97535; 99285-25; J7030

== ENCOUNTER 2021-06-16 22:21 | Inpatient (IN) | payer OTHER ==
[~2021-06-16] VITALS: Ht 162.6 cm; Wt 99.1 kg
[~2021-06-16 22:21] MED LIST changes: +ACET325T9 PO; +BACL10TA PO; +BISA10SU4 RC; +CETI10TA16 PO; +MELA5TAB20 PO; +MIRT15TA90 PO; +OXCA600T9 PO; +OXYC5CAP PO; +POLY17PO5 PO; +PREG200C PO; +SENN8.6T11 PO; +VENL75TA2 PO
[2021-06-16] MEDS ORDERED: NALOXONE 0.4 MG/ML VIAL. ONE (23:54)
[2021-06-17] VITALS (7 sets, daily range): BP systolic 97–156; BP diastolic 48–90
[2021-06-17 00:11] LABS: BASO # 0.2 x10^3/uL (0.0-0.2); BASO % 1 % (0-3); EOS # 0.2 x10^3/uL (0.0-0.7); EOS % 2 % (0-3); HEMOGLOBIN 13.2 g/dL (12.0-15.5); LYMPH # 2.9 x10^3/uL (1.0-4.8); LYMPH % 23 % (24-48); MEAN CORPUSCULAR HEMOGLOBIN 27 pg (25-35); MEAN CORPUSCULAR HGB CONC 32 g/dL (31-37); MEAN CORPUSCULAR VOLUME 83 fL (79-100); MONO # 1.1 x10^3/uL (0.0-1.1); MONO % 9 % (0-9); NEUT # 8.5 x10^3uL (1.8-7.7); NEUT % 66 % (31-73); PLATELET COUNT 334 x10^3/uL (140-400); RED BLOOD COUNT 4.97 x10^6/uL (3.50-5.40); RED CELL DISTRIBUTION WIDTH 17.7 % (11.5-14.5); WHITE BLOOD COUNT 12.9 x10^3/uL (4.0-11.0)
[2021-06-17 00:17] LABS: CALCIUM 8.8 mg/dL (8.5-10.1); CREATININE 1.2 mg/dL (0.6-1.0); GFR 55.2; POTASSIUM 3.7 mmol/L (3.5-5.1)
[2021-06-17] MEDS ORDERED: NALOXONE 0.4 MG/ML VIAL. IV ONE (00:30)
[2021-06-17] MEDS ORDERED: IV NORMAL SALINE 1,000ML 1,000 ML IV ONE (00:30)
[2021-06-17 00:35] LABS: ALBUMIN 4.2 g/dL (3.4-5.0); ALBUMIN/GLOBULIN RATIO 1.4 (1.0-1.7); TOTAL BILIRUBIN 0.3 mg/dL (0.2-1.0); TOTAL PROTEIN 7.1 g/dL (6.4-8.2)
--- NOTE | 2021-06-17 01:11 | RAD ---
AP chest x-ray HISTORY: Shortness of breath, history of tobacco smoking, positive Covid infection. COMPARISON: Chest x-ray May 07, 2021 FINDINGS: Heart size normal. Mediastinal silhouette is unremarkable. No pneumothorax. No pleural effu sions. There are bilateral pulmonary opacities with a perihilar and lower lobe distribution, they hav e mildly decreased prior exam from 6 weeks ago. Bones are unremarkable. IMPRESSION: Mildly improved but persistent bilateral perihilar and lower lobe pulmonary infiltrates s sammy the prior study from 6 weeks earlier. Electronically signed by: Thein York MD (06/17/2021 1:08 AM) [facility]
[2021-06-17] MEDS ORDERED: VANCOMYCIN 1 GM in IV NORMAL SALINE 250ML 250 ML IV ONE (01:45)
[2021-06-17] MEDS ORDERED: VANCOMYCIN 2 GM in IV NORMAL SALINE 500ML 500 ML IV ONE ×2 (02:00→09:00)
[2021-06-17] MEDS ORDERED: PIPERACILLIN/TAZOBACTAM 3.375 GM in IV NORMAL SALINE 50ML 50 ML IV ONE (02:00)
--- NOTE | 2021-06-17 02:15 | RAD ---
CT head without contrast PQRS statement: CT scans at this facility use dose reduction including either automated exposure cont rol, iterative reconstructions, and /or weight based radiation dosing via mA and kV modification when appropriate to reduce radiation dose to as low as reasonably achievable. HISTORY: Hallucinations. COMPARISON: CT head May 07, 2021 FINDINGS: No intracranial hemorrhage, mass, hydrocephalus, extra-axial fluid collections or infarctio n. Left maxillary and right maxillary sinus cysts. Orbits, mastoids and bones are unremarkable. IMPRESSION: No acute abnormality. Electronically signed by: Thien York MD (06/17/2021 2:13 AM) [facility]
[2021-06-17] MEDS ORDERED: IV NORMAL SALINE 50ML 50 ML ONE (02:38)
[2021-06-17] MEDS ORDERED: PIPERACILLIN/TAZOBACTAM 3.375 GM VIAL IV ONE (02:38)
--- NOTE | 2021-06-17 04:04 | NUR ---
The patient, YORDY MARTINES, 25 y/o, F admitted by YUNI CORCORAN MD, was given written information regarding hospital policies, unit procedures and contact persons. Valuables were checked and logged. Call light in reach.
--- NOTE | 2021-06-17 04:13 | PHYS DOC ---
Past History Past Medical History: Anxiety, Depression, GERD, Hypertension, Migraines Additional Past Medical Histor: VIANEY PAGE, covid Past Surgical History: No Surgical History Alcohol Use: None Drug Use: None Adult General Chief Complaint Chief Complaint: HALLUCINATIONS AUDIBLE/VISUAL HPI HPI Patient brought by ambulance with complaint of hallucination. Patient has recent history of being diagnosed with Guillain-Asif syndrome and was admitted with Covid positive pneumonia and respiratory difficulties at in May 2021. She started having auditory and visual hallucination and was having more shortness of breath prior to arrival and was brought by ambulance to the emergency department. Upon arrival patient is quite sleepy and states that she had taken hydrocodone. While it is difficult to get history, when she awakens she does respond appropriately. She is a Covid vaccine but she is at Covid disease as well. She denies any nausea, vomiting, chest pain, headache, focal weakness or numbness. Review of Systems Review of Systems Constitutional: Denies fever or chills [] Eyes: Denies change in visual acuity, redness, or eye pain [] HENT: Denies nasal congestion or sore throat [] Respiratory: Denies cough or shortness of breath [] Cardiovascular: No additional information not addressed in HPI [] GI: Denies abdominal pain, nausea, vomiting, bloody stools or diarrhea [] : Denies dysuria or hematuria [] Musculoskeletal: Generalized weakness of the lower extremities Integument: Denies rash or skin lesions [] Neurologic: Denies headache, positive for Guillain-Saif and muscular weakness Endocrine: Denies polyuria or polydipsia [] All other systems were reviewed and found to be within normal limits, except as documented in this note. Family History Family History Unremarkable Current Medications Current Medications Current Medications Medications (Trade) Dose Ordered Sig/Xu Start Time Stop Time Status Last Admin Dose Admin Lorazepam (Ativan Inj) 2 mg 1X ONCE 06/17/21 00:30 06/17/21 00:35 DC 06/17/21 00:25 2 MG Naloxone HCl (Narcan) 0.4 mg 1X ONCE 06/17/21 00:30 06/17/21 00:35 DC 06/17/21 00:10 0.4 MG Piperacillin Sod/ Tazobactam Sod 3.375 gm/Sodium Chloride 50 ml @ 100 mls/hr 1X ONCE 06/17/21 02:00 06/17/21 02:29 DC 06/17/21 03:10 100 MLS/HR Sodium Chloride 1,000 ml @ 1,000 mls/hr 1X ONCE 06/17/21 00:30 06/17/21 01:29 DC 06/16/21 23:20 1,000 MLS/HR Vancomycin HCl 1 gm/Sodium Chloride 250 ml @ 250 mls/hr 1X ONCE 06/17/21 01:45 06/17/21 02:44 UNV Vancomycin HCl 2 gm/Sodium Chloride 500 ml @ 250 mls/hr 1X ONCE 06/17/21 02:00 06/17/21 03:59 DC Allergies Allergies Allergies Coded Allergies Type Severity Reaction Last Updated Verified No Known Allergies Allergy Unknown 06/16/21 Yes Physical Exam Physical Exam Constitutional: She is sleepy but arousable but then immediately fall asleep back. HENT: Normocephalic, atraumatic, bilateral external ears normal, oropharynx moist, no oral exudates. Eyes: PERRLA, EOMI, conjunctiva normal, no discharge. Neck: Normal range of motion, no tenderness, supple, no stridor. Cardiovascular:Heart rate regular rhythm, no murmur Lungs & Thorax: Bilateral diminished breath sounds at bases with some crackles. Abdomen: Bowel sounds normal, soft, no tenderness, no masses, no pulsatile masses. Skin: Warm, moist, no erythema, no rash. Back: No tenderness, no CVA tenderness. Extremities: No tenderness, no cyanosis, no clubbing, she has some orthotics to the lower extremities. Neurologic: Alert and oriented X 3, it is difficult to test her motor or sensory to the finer details but grossly she is moving all 4 extremities equally. Psychologic: Mood is flat and patient denies any suicidal ideation Current Patient Data Vital Signs Vital Signs Date Time Temp Pulse Resp B/P (MAP) Pulse Ox O2 Delivery O2 Flow Rate FiO2 06/17/21 03:22 86 14 96/56 (69) 96 Nasal Cannula 2.0 06/16/21 22:48 98.7 Lab Results Laboratory Tests Test 06/16/21 23:15 06/17/21 01:20 White Blood Count 12.9 x10^3/uL (4.0-11.0) H Red Blood Count 4.97 x10^6/uL (3.50-5.40) Hemoglobin 13.2 g/dL (12.0-15.5) Hematocrit 41.0 % (36.0-47.0) Mean Corpuscular Volume 83 fL (79-100) Mean Corpuscular Hemoglobin 27 pg (25-35) Mean Corpuscular Hemoglobin Concent 32 g/dL (31-37) Red Cell Distribution Width 17.7 % (11.5-14.5) H Platelet Count 334 x10^3/uL (140-400) Neutrophils (%) (Auto) 66 % (31-73) Lymphocytes (%) (Auto) 23 % (24-48) L Monocytes (%) (Auto) 9 % (0-9) Eosinophils (%) (Auto) 2 % (0-3) Basophils (%) (Auto) 1 % (0-3) Neutrophils # (Auto) 8.5 x10^3uL (1.8-7.7) H Lymphocytes # (Auto) 2.9 x10^3/uL (1.0-4.8) Monocytes # (Auto) 1.1 x10^3/uL (0.0-1.1) Eosinophils # (Auto) 0.2 x10^3/uL (0.0-0.7) Basophils # (Auto) 0.2 x10^3/uL (0.0-0.2) Sodium Level 138 mmol/L (136-145) Potassium Level 3.7 mmol/L (3.5-5.1) Chloride Level 99 mmol/L (98-107) Carbon Dioxide Level 29 mmol/L (21-32) Anion Gap 10 (6-14) Blood Urea Nitrogen 17 mg/dL (7-20) Creatinine 1.2 mg/dL (0.6-1.0) H Estimated GFR (Cockcroft-Gault) 55.2 BUN/Creatinine Ratio 14 (6-20) Glucose Level 101 mg/dL (70-99) H Calcium Level 8.8 mg/dL (8.5-10.1) Total Bilirubin 0.3 mg/dL (0.2-1.0) Aspartate Amino Transferase (AST) 35 U/L (15-37) Alanine Aminotransferase (ALT) 122 U/L (14-59) H Alkaline Phosphatase 123 U/L (46-116) H Troponin I Quantitative 0.078 ng/mL (0-0.055) H Total Protein 7.1 g/dL (6.4-8.2) Albumin 4.2 g/dL (3.4-5.0) Albumin/Globulin Ratio 1.4 (1.0-1.7) SARS-CoV-2 Antigen (Rapid) Negative (NEGATIVE) EKG EKG EKG shows heart rate of 110 bpm tachycardia with nonspecific inferior ST segment abnormalities. No significant arrhythmias present Radiology/Procedures Radiology/Procedures [] Impressions: Chest x-ray shows mildly improved but persistent bilateral perihilar and lower lobe pulmonary infiltrates since the prior study from 6-week earlier for radiology interpretation. CT scan of her head showed no acute abnormalities per radiology interpretation. Heart Score C/O Chest Pain: No Risk Factors: Risk Factors: DM, Current or recent (<one month) smoker, HTN, HLP, family history of CAD, obesity. Risk Scores: Risk Factors: DM, Current or recent (<one month) smoker, HTN, HLP, family histo ry of CAD, obesity. Course & Med Decision Making Course & Med Decision Making Patient was placed on mophead trimmer and wrapper which showed sinus tachycardia with pulse oximetry and to 90% in 2 L nasal cannula improved to 95%. Patient was extremely sleepy and 0.2 mg Narcan repeated by 0.2 mg was given which did significantly a walker and made her agitated. She subsequently received Ativan intramuscularly as we had lost IV. Her x-ray as stated above shows persistent pneumonia likely from Covid. Due to her hypoxia, hallucination and overall condition, she requires hospitalization. She has mild leukocytosis, mildly elevated liver functions and mildly elevated troponin. She remained hemodynamically stable in the emergency department and prior to transfer to inpatient, she continued to be chest pain-free and having normal sinus rhythm oxygenating at 95% on 2 L nasal cannula. I spoke with Dr. Bee who will admit patient. Dragmichael Disclaimer Dragon Disclaimer This electronic medical record was generated, in whole or in part, using a voice recognition dictation system. Departure Departure: Impression: Primary Impression: Guillain Asif syndrome Additional Impressions: COVID-19 Hallucination Hypoxia Pneumonia Disposition: ADMITTED INPATIENT Condition: GUARDED Problem Qualifiers Additional Impressions: Pneumonia Pneumonia type: due to unspecified organism Laterality: bilateral Lung location: upper lobe of lung Qualified Codes: J18.9 - Pneumonia, unspecified organism HIRAM LOAIZA MD Jun 17, 2021 04:13
[2021-06-17 04:59] LABS: BACTERIA,URINE 0 /HPF (0-FEW); BILIRUBIN,URINE SMALL (NEG); CLARITY,URINE CLEAR; COLOR,URINE YELLOW; GLUCOSE,URINE NEG (NEG); NITRITE,URINE NEG (NEG); RBC,URINE 0 /HPF (0-2); SQUAMOUS EPITHELIAL CELL,UR OCC /LPF; UROBILINOGEN,URINE 0.2 mg/dL (0.2 mg/dL); WBC,URINE OCC /HPF (0-4)
--- NOTE | 2021-06-17 06:02 | NUR ---
Pt is asleep and will not answer which pharmacy she uses. Pt[facility] so this nurse called and the pharmacist only had her on Lyrica 200mg TID, Metoprolol tartrate 50mg BID, Trileptal 600mg BID, Wellbutrin XL 150mg Qday, and Zofran 8mg PO TID PRN. The med lists do not match from her last stay. Med list needs clarification.
--- NOTE | 2021-06-17 06:37 | EKG ---
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
[2021-06-17] MEDS ORDERED: BISACODYL 10 MG SUPP.RECT RC PRN (07:30)
[2021-06-17] MEDS ORDERED: PIP/TAZO PER PHARMACY MC PRN (07:30)
[2021-06-17] MEDS ORDERED: ACETAMINOPHEN 325 MG TABLET PO PRN (07:30)
[2021-06-17] MEDS ORDERED: VANCOMYCIN PER PHARMACY MC PRN (07:30)
[2021-06-17] MEDS ORDERED: ONDANSETRON ODT 4 MG TAB.RAPDIS PO PRN (07:30)
[2021-06-17] MEDS ORDERED: PIPERACILLIN/TAZOBACTAM 3.375 GM in IV NORMAL SALINE 50ML 50 ML IV SCH (08:30)
[2021-06-17] MEDS: IV NORMAL SALINE 1,000ML 1,000 ML IV SCH ×2 (08:39→20:22)
[2021-06-17] MEDS: ENOXAPARIN 40 MG/0.4 ML SYRINGE. SQ SCH (08:40)
[2021-06-17] MEDS ORDERED: PREGABALIN PO SCH (09:00)
[2021-06-17] MEDS ORDERED: BACLOFEN 10 MG TABLET PO SCH (09:00)
[2021-06-17] MEDS: POLYETHYLENE GLYCOL 3350 17 GM PACKET. PO SCH (09:00)
[2021-06-17] MEDS ORDERED: VENLAFAXINE HCL PO SCH (09:00)
[2021-06-17] MEDS ORDERED: NALOXONE 0.4 MG/ML VIAL. IV PRN (09:15)
--- NOTE | 2021-06-17 09:41 | PDOC2 ---
CARDIAC CONSULT DATE OF CONSULT DOS: DATE: 06/17/21 TIME: 09:33 REASON FOR CONSULT Reason for Consult Elevated troponin REFERRING PHYSICIAN Referring Physician Dr. Sampson SOURCE Source: Chart review HPI History of Present Illness This is a 25 yo female who presented secondary to hallucinations. Patient has a history Guillain-Asif syndrome earlier this year and was in the hospital and rehabilitation for approximately 3 months. She has had a prolonged period of decreased mobility due to her Guillain-Asif. Last month, was hospital at for respiratory failure secondary to PNA. Was treated and discharge home 05/12/2021 with services. Patient recently tested + for COVID. Others at home with COVID as well. Per reports, patient began experiencing more shortness of breath and hallucination which prompted her arrival to the ED. Patient is presently somnolent and unable to provided at history. No reports of chest pain. Troponin noted to be mildly elevated, which prompted this consult. PAST MEDICAL HISTORY Past Medical History Guillian Linn Cardiovascular: HTN Pulmonary: Pneumonia, Other (acute respiratory failure ) CENTRAL NERVOUS SYSTEM: Periperal neuropathy Psych: Anxiety, Depression Endocrine: Other (obesity ) PAST SURGICAL HISTORY Past Surgical History: No pertinent history FAMILY HISTORY Family History: Heart Disease SOCIAL HISTORY ALCOHOL: none Drugs: None Lives: with Family CURRENT MEDICATIONS Current Medications Current Medications Naloxone HCl (Narcan) 0.4 mg STK-MED ONCE .ROUTE ; Start 06/16/21 at 23:54; Stop 06/16/21 at 23:55; Status DC Lorazepam (Ativan Inj) 1 mg 1X ONCE IVP ; Start 06/17/21 at 00:30; Stop at 00:35; Status DC Sodium Chloride 1,000 ml @ 1,000 mls/hr 1X ONCE IV Last administered on 06/16/21at 23:20; Start 06/17/21 at 00:30; Stop 06/17/21 at 01:29; Status DC Naloxone HCl (Narcan) 0.4 mg 1X ONCE IV Last administered on 06/17/21at 00:10; Start 06/17/21 at 00:30; Stop 06/17/21 at 00:35; Status DC Lorazepam (Ativan Inj) 2 mg 1X ONCE IM Last administered on 06/17/21at 00:25; Start 06/17/21 at 00:30; Stop 06/17/21 at 00:35; Status DC Piperacillin Sod/ Tazobactam Sod 3.375 gm/Sodium Chloride 50 ml @ 100 mls/hr 1X ONCE IV Last administered on 06/17/21at 03:10; Start 06/17/21 at 02:00; Stop 06/17/21 at 02:29; Status DC Vancomycin HCl 1 gm/Sodium Chloride 250 ml @ 250 mls/hr 1X ONCE IV ; Start 06/17/21 at 01:45; Stop 06/17/21 at 02:44; Status UNV Vancomycin HCl 2 gm/Sodium Chloride 500 ml @ 250 mls/hr 1X ONCE IV Last administered on 06/17/21at 04:40; Start 06/17/21 at 02:00; Stop 06/17/21 at 03:59; Status DC Sodium Chloride 50 ml @ As Directed STK-MED ONCE .ROUTE ; Start 06/17/21 at 02:3 8; Stop 06/17/21 at 02:38; Status DC Piperacillin Sod/ Tazobactam Sod (Zosyn) 3.375 gm STK-MED ONCE IV ; Start 06/17/21 at 02:38; Stop 06/17/21 at 02:38; Status DC Acetaminophen (Tylenol) 650 mg PRN Q4HRS PRN PO MILD PAIN / TEMP > 100.3'F; Start 06/17/21 at 07:30 Baclofen (Lioresal) 10 mg TID PO ; Start 06/17/21 at 09:00; Status Cancel Bisacodyl (Dulcolax Supp) 10 mg PRN DAILY PRN RC CONSTIPATION; Start 06/17/21 at 07:30 Mirtazapine (Remeron Hannah-Tab) 15 mg QHS PO ; Start 06/17/21 at 21:00; Status UNV Ondansetron HCl (Zofran Odt) 4 mg PRN Q6HRS PRN PO NAUSEA/VOMITING; Start 06/17/21 at 07:30 Polyethylene Glycol (miraLAX) 17 gm DAILY PO ; Start 06/17/21 at 09:00 Sennosides (Senna) 8.6 mg HS PO ; Start 06/17/21 at 21:00 Non-Formulary Medication (Melatonin ) 1 tab QHS PO ; Start 06/17/21 at 21:00; Stop 06/17/21 at 07:39; Status DC Non-Formulary Medication (Omeprazole Magnesium (Prilosec Otc)) 40 mg DAILY PO ; Start 06/17/21 at 09:00; Status UNV Non-Formulary Medication (Oxcarbazepine ) 1 tab BID PO ; Start 06/17/21 at 09:00; Status UNV Non-Formulary Medication (Oxycodone Hcl ) 20 mg Q6HRS PO ; Start 06/17/21 at 12:00; Stop 06/17/21 at 07:25; Status DC Non-Formulary Medication (Pregabalin (Lyrica)) 1 cap TID PO ; Start 06/17/21 at 09:00; Stop 06/17/21 at 07:39; Status DC Non-Formulary Medication (Venlafaxine Hcl (Venlafaxine Hcl Er)) 3 tab DAILY PO ; Start 06/17/21 at 09:00; Stop 06/17/21 at 07:39; Status DC Piperacillin Sod/ Tazobactam Sod (Zosyn Per Pharmacy) 1 each PRN DAILY PRN MC SEE COMMENTS; Start 06/17/21 at 07:30 Vancomycin HCl (Vanco Per Pharmacy) 1 each PRN DAILY PRN MC SEE COMMENTS; Start 06/17/21 at 07:30 Enoxaparin Sodium (Lovenox 40mg Syringe) 40 mg Q24H SQ Last administered on 06/17/21at 08:40; Start 06/17/21 at 08:30 Sodium Chloride 1,000 ml @ 125 mls/hr Q8H IV Last administered on 06/17/21at 08:39; Start 06/17/21 at 08:15 Vancomycin HCl 2 gm/Sodium Chloride 500 ml @ 250 mls/hr 1X ONCE IV ; Start 06/17/21 at 09:00; Stop 06/17/21 at 10:59 Piperacillin Sod/ Tazobactam Sod 3.375 gm/Sodium Chloride 50 ml @ 100 mls/hr Q6HRS IV Last administered on 06/17/21at 08:40; Start 06/17/21 at 08:30; Stop 06/17/21 at 09:30; Status DC Dexamethasone Sodium Phosphate (Decadron) 10 mg Q8HRS IV ; Start 06/17/21 at 09:00 Naloxone HCl (Narcan) 0.4 mg PRN Q2MIN PRN IV SEE COMMENTS; Start 06/17/21 at 09:15 Piperacillin Sod/ Tazobactam Sod 4.5 gm/Sodium Chloride 50 ml @ 100 mls/hr Q6HRS IV ; Start 06/17/21 at 12:00 Lactobacillus Rhamnosus (Culturelle) 1 cap BID PO ; Start 06/17/21 at 21:00 Active Scripts Active Reported Tylenol (Acetaminophen) 325 Mg Tablet 2 Tab PO PRN Q4HRS Baclofen 10 Mg Tablet 1 Tab PO TID Bisacodyl 10 Mg Supp.rect 10 Mg RC PRN DAILY PRN Cetirizine Hcl 10 Mg Tablet 1 Tab PO DAILY Melatonin 5 Mg Tab.rapdis 1 Tab PO QHS 30 Days Mirtazapine 15 Mg Tab.rapdis 1 Tab PO QHS 30 Days Oxcarbazepine 600 Mg Tablet 1 Tab PO BID 30 Days Oxycodone Hcl 5 Mg Capsule 20 Mg PO Q6HRS Miralax (Polyethylene Glycol 3350) 17 Gm Powd.pack 1 Packet PO DAILY 2 Days dissolve in water Lyrica (Pregabalin) 200 Mg Capsule 1 Cap PO TID Senna Laxative (Sennosides) 8.6 Mg Tablet 1 Tab PO HS 30 Days Venlafaxine Hcl Er (Venlafaxine Hcl) 75 Mg Tab.er.24 3 Tab PO DAILY 30 Days Metoprolol Tartrate 25 Mg Tablet 50 Mg PO BID Prilosec Otc (Omeprazole Magnesium) 20 Mg Tablet.dr 40 Mg PO DAILY Ondansetron Odt (Ondansetron) 4 Mg Tab.rapdis 4 Mg PO PRN Q6HRS PRN ALLERGIES Allergies: Coded Allergies: No Known Allergies (Verified Allergy, Unknown, 06/16/21) ROS Review of Systems unobtainable PHYSICAL EXAM Physical Exam Visual exam conducted due to COVID precautions General: No acute distress HEENT: Atraumatic Lungs: Other (on NC) Heart: Regular rate (SR) Abdomen: Other (obese) Neuro: Other (sleeping ) Psych/Mental Status: Other (unable to assess ) VITALS Vital Signs Vital Signs Date Time Temp Pulse Resp B/P (MAP) Pulse Ox O2 Delivery O2 Flow Rate FiO2 06/17/21 07:05 87 13 97/48 (64) 94 Nasal Cannula 2.0 06/17/21 04:15 97.8 LABS LABS Laboratory Tests Test 06/16/21 23:15 06/17/21 01:20 06/17/21 04:00 06/17/21 04:30 White Blood Count 12.9 x10^3/uL (4.0-11.0) Red Blood Count 4.97 x10^6/uL (3.50-5.40) Hemoglobin 13.2 g/dL (12.0-15.5) Hematocrit 41.0 % (36.0-47.0) Mean Corpuscular Volume 83 fL (79-100) Mean Corpuscular Hemoglobin 27 pg (25-35) Mean Corpuscular Hemoglobin Concent 32 g/dL (31-37) Red Cell Distribution Width 17.7 % (11.5-14.5) Platelet Count 334 x10^3/uL (140-400) Neutrophils (%) (Auto) 66 % (31-73) Lymphocytes (%) (Auto) 23 % (24-48) Monocytes (%) (Auto) 9 % (0-9) Eosinophils (%) (Auto) 2 % (0-3) Basophils (%) (Auto) 1 % (0-3) Neutrophils # (Auto) 8.5 x10^3uL (1.8-7.7) Lymphocytes # (Auto) 2.9 x10^3/uL (1.0-4.8) Monocytes # (Auto) 1.1 x10^3/uL (0.0-1.1) Eosinophils # (Auto) 0.2 x10^3/uL (0.0-0.7) Basophils # (Auto) 0.2 x10^3/uL (0.0-0.2) Sodium Level 138 mmol/L (136-145) Potassium Level 3.7 mmol/L (3.5-5.1) Chloride Level 99 mmol/L (98-107) Carbon Dioxide Level 29 mmol/L (21-32) Anion Gap 10 (6-14) Blood Urea Nitrogen 17 mg/dL (7-20) Creatinine 1.2 mg/dL (0.6-1.0) Estimated GFR (Cockcroft-Gault) 55.2 BUN/Creatinine Ratio 14 (6-20) Glucose Level 101 mg/dL (70-99) Calcium Level 8.8 mg/dL (8.5-10.1) Total Bilirubin 0.3 mg/dL (0.2-1.0) Aspartate Amino Transf (AST/SGOT) 35 U/L (15-37) Alanine Aminotransferase (ALT/SGPT) 122 U/L (14-59) Alkaline Phosphatase 123 U/L (46-116) Troponin I Quantitative 0.078 ng/mL (0-0.055) 0.049 ng/mL (0-0.055) Total Protein 7.1 g/dL (6.4-8.2) Albumin 4.2 g/dL (3.4-5.0) Albumin/Globulin Ratio 1.4 (1.0-1.7) SARS-CoV-2 Antigen (Rapid) Negative (NEGATIVE) Urine Collection Type U cath Urine Color Yellow Urine Clarity Clear Urine pH 6.0 Urine Specific [place] 1.015 Urine Protein Neg (NEG-TRACE) Urine Glucose (UA) Neg mg/dL (NEG) Urine Ketones (Stick) Trace mg/dL (NEG) Urine Blood Neg (NEG) Urine Nitrite Neg (NEG) Urine Bilirubin Small (NEG) Urine Urobilinogen Dipstick 0.2 mg/dL (0.2 mg/dL) Urine Leukocyte Esterase Neg (NEG) Urine RBC 0 /HPF (0-2) Urine WBC Occ /HPF (0-4) Urine Squamous Epithelial Cells Occ /LPF Urine Bacteria 0 /HPF (0-FEW) Test 06/17/21 08:20 Lactic Acid Level 0.7 mmol/L (0.4-2.0) Troponin I Quantitative 0.056 ng/mL (0-0.055) ECHOCARDIOGRAM Echocardiogram <Conclusion> The left ventricular systolic function is normal and the ejection fraction is within normal range. The Ejection Fraction is 50-55%. There is normal LV segmental wall motion. The right ventricle is moderately dilated. Doppler and Color Flow revealed trace tricuspid regurgitation with an estimated PAP of 54 mmHg. DATE: 05/06/21 1015 05/10/21 - 2D + DOPPLER ECHO Interpretation Summary All left ventricular segments appear to contract the lower limits of normal. Overall left ventricular systolic function appears to be at the lower limits of normal. The estimated left ventricular ejection fraction is 50 to 55%. Normal left ventricular diastolic function. The right ventricle and the right atria are not visualized well. Normal left atrial dimensions. The aortic, mitral and tricuspid cardiac valves appear structurally normal. There is no evidence of significant valvular regurgitation or stenosis by doppler exam. No pericardial effusion is seen. The estimated peak systolic PA pressure =24 mmHg. ASSESSMENT/PLAN Assessment/Plan 1. Acute respiratory failure, COVID PNA. Rapid negative, recent PCR + 2. Mild troponin elevation; highest 0.07. Most probably type II, demand ischemia. Recent echo with preserved LV systolic function as noted above 3. Prolonged weakness due to Guillain-Asif syndrome earlier this year 4. H/o hypertension with present low end pressure 5. H/o SVT; on metoprolol for rate control 6. JEREMIAH; IVFs 7. Anxiety, depression 8. Obesity Recommendations ASA therapy Hold metoprolol with low end blood pressure; make use IV Dig as warranted for tachycardia Ongoing lung optimization Supportive care from a CV standpoint MAVERICK HUANG APRN Jun 17, 2021 09:41
[2021-06-17] MEDS: DEXAMETHASONE SOD PHOS 10 MG/ML VIAL. IV SCH ×3 (10:19→22:06)
--- NOTE | 2021-06-17 11:20 | HP ---
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 She did have vaccinations earlier this year. There is some concern of the reaction of the vaccine to the Guillain-Auburn causing it thereof COVID-19 now. She is having some respiratory difficulties. She has been hallucinating and having other severe issues at home. She spent a month or more down at [facility] for Guillain-Auburn and rehabilitation. She is recuperating at home and apparently several people living in the home have COVID-19, and she came down with the infection with respiratory difficulties. The patient is pretty much comatose. She is nonresponsive, at times very minimal. She has been given couple doses of Narcan down in the Emergency Room where she came in, and she is still basically very sedated from this. She has been taking large doses of oxycodone and other pain medications. She claims that she has severe and probable pain from the Guillain-Auburn causing dysfunction to her nervous system as it recuperates, but because of her overall medical condition, chest x-ray showing pneumonia, overall indications of a septic individual, the patient was admitted here to the ICU for close monitoring and COVID-19 protocol of remdesivir, Decadron, other medications to help her overcome the COVID-19, as she is a highly compromised individual with oxygen saturation in the low 90s to upper 80s on room air. PAST MEDICAL HISTORY: As indicated, Guillain-Auburn syndrome here approximately 3 months ago and still having severe complications from it in terms of generalized weaknesses. She has bilateral leg braces due to the weakness in her legs, neuropathy in her legs, and extremities with numbness, tingling, painful sensations throughout. Other indications include that of the history of sleep apnea, obesity, obviously GERD, severe depression. ALLERGIES: The patient has no known allergies. FAMILY HISTORY: Father with seizures. Grandmother with heart disease, myocardial infarction, diabetes. Mother with diabetes, hypertension, alcoholism, COPD, heart failure. Grandmother with history of stroke. SOCIAL HISTORY: The patient herself does have a [id number] history of smoking. Denies alcohol or drug use. MEDICATIONS: Outside of the medications were given are for pain, such as oxycodone. The patient is a full code. REVIEW OF SYSTEMS: The patient is really not able to give any history as she is comatose, she is out. PHYSICAL EXAMINATION: GENERAL: This is an ill-appearing, sedated-appearing white female, obese. VITAL SIGNS: Blood pressure 98/47, respiratory rate 22, pulse 110, afebrile, 94% on room air and down to 92% on room air at rest. HEENT: Head was atraumatic, normocephalic. Eyes: Markedly dilated pupils, approximately 4-5 mm. Slightly reactive to light. MOUTH AND THROAT: Normal dentition. Dry mucous membranes. Oxygen in place. NECK: Supple, moving her head very easily, supply. LUNGS: Diminished throughout. Poor movement of air, but basically clear. CARDIOVASCULAR: Tachycardic without murmur, rub, thrill or extra heart sound. ABDOMEN: Markedly protuberant, but soft. Hard to say if there seems to be some tenderness as the patient grimaces on palpation. The patient has been having diarrhea at home. EXTREMITIES: Without clubbing, cyanosis or edema. The lower extremities show marked atrophy to the musculoskeletal system. Pulses are noted to be present distally. The patient's plantars down. Reflexes diminished in the lower extremities. The patient not able to follow commands at this time. NEUROLOGIC: As noted, the patient markedly comatose or sedated. We will give another dose of Narcan, had 2 in the Emergency Room. LABORATORY DATA: From outpatient clinic recently shows that of COVID-19 positive as well as Haemophilus influenzae 100% in her sputum for PCR. The patient's chest x-ray here through the Emergency Room shows bilateral perihilar lower lobe pulmonary infiltrates consistent with her pneumonia. The patient's labs show white count of approximately 13, hemoglobin 13, hematocrit 41, platelets stable, 23% low lymphocytes, neutrophils stable. Sodium 138, potassium 3.7. BUN 17, creatinine 1.2. GFR 55. Glucose 101. Elevated liver enzymes of ALT 122, alkaline phosphatase 123. Troponin elevated at 0.078, although coming down. The patient's total protein 7.1, albumin 4.2. Urine was basically unremarkable. Serology shows SARS here negative, although that was a rapid PCR test from the office was positive that was 4 days ago, but we will treat her for SARS at the present time until further testing is performed since the patient is so grossly ill. IMPRESSION AND PLAN: Pneumonia, COVID-19, Haemophilus influenzae pneumonia, respiratory distress, elevated cardiac enzymes, hypotension, elevated liver enzymes, chronic kidney disease stage 3A. For now, we will treat her as a severe acute respiratory syndrome patient with pneumonia. She is on Zosyn and vancomycin, give her additional doses of Narcan, try to keep her off as many of the narcotics as possible to see if her mental status improves. She is also on Lovenox. We will start her on some procalamine as she is not able to take any fluids and/or nutrition as she is markedly sedated, probably from the narcotics themselves, but in any case, we will plan on a conservative basis with her and then adjust as the conditions change. JUDAH/MARGO/JT DR: JUDAH/nathalia TID: [id number]
[2021-06-17] MEDS ORDERED: OXYCODONE HCL 20 MG PO SCH (12:00)
[2021-06-17] MEDS: PIPERACILLIN/TAZOBACTAM 4.5 GM in IV NORMAL SALINE 50ML 50 ML IV SCH ×2 (12:41→20:21)
[2021-06-17] MEDS ORDERED: REMDESIVIR LOAD in IV NORMAL SALINE 250ML TV IV ONE (15:00)
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
[2021-06-17 18:54] LABS: BARBITURATES NEG (NEG); BENZODIAZEPINES NEG (NEG); CANNABINOIDS POS (NEG); COCAINE NEG (NEG); METHADONE NEG (NEG); OPIATES POS (NEG); PHENCYCLIDINE NEG (NEG)
[2021-06-17 18:55] LABS: AMPHETAMINE/METHAMPHETAMINE NEG (NEG)
[2021-06-17] MEDS: LACTOBACILLUS RHAMNOSUS GG 1 CAPSULE. PO SCH (20:20)
[2021-06-17] MEDS ORDERED: SENNOSIDES 8.6 MG TABLET PO SCH (21:00)
[2021-06-17] MEDS ORDERED: MIRTAZAPINE 15 MG TABLET PO SCH (21:00)
[2021-06-17] MEDS ORDERED: NON FORMULARY ITEM (Melatonin 1 TAB) PO SCH (21:00)
[2021-06-18] MEDS: IV NORMAL SALINE 1,000ML 1,000 ML IV SCH ×3 (00:15→16:15)
[2021-06-18] MEDS: PIPERACILLIN/TAZOBACTAM 4.5 GM in IV NORMAL SALINE 50ML 50 ML IV SCH ×3 (00:26→12:00)
[2021-06-18] MEDS: DEXAMETHASONE SOD PHOS 10 MG/ML VIAL. IV SCH (06:05)
[2021-06-18 06:19] VITALS: BP 128/71
[2021-06-18] MEDS ORDERED: PANTOPRAZOLE 40 MG TABLET. PO SCH (07:30)
[2021-06-18 07:48] VITALS: BP 143/89
[2021-06-18] MEDS ORDERED: ASPIRIN ENTERIC COATED 81 MG TABLET.DR. PO SCH (08:00)
[2021-06-18] MEDS: POLYETHYLENE GLYCOL 3350 17 GM PACKET. PO SCH (08:02)
[2021-06-18] MEDS: ENOXAPARIN 40 MG/0.4 ML SYRINGE. SQ SCH (08:02)
[2021-06-18] MEDS: LACTOBACILLUS RHAMNOSUS GG 1 CAPSULE. PO SCH (08:03)
--- NOTE | 2021-06-18 08:07 | PDOC ---
CARDIO Progress Notes Date & Time Date of Service DATE: 06/18/21 TIME: 08:01 Time of Evaluation 08:01 Subjective Notes Patient sleeping Vitals Vitals Vital Signs Date Time Temp Pulse Resp B/P (MAP) Pulse Ox O2 Delivery O2 Flow Rate FiO2 06/18/21 07:48 86 18 143/89 (107) 93 Nasal Cannula 2.0 06/18/21 06:19 98.1 Weight Weight [ ] Input and Output I.O. Intake and Output 06/18/21 07:00 Intake Total 2710 ml Output Total 2050 ml Balance 660 ml Intake Oral 800 ml IV Total 1910 ml Output Urine Total 2050 ml Laboratory Labs Laboratory Tests Test 06/16/21 23:15 06/17/21 01:20 06/17/21 04:00 06/17/21 04:30 White Blood Count 12.9 x10^3/uL (4.0-11.0) Red Blood Count 4.97 x10^6/uL (3.50-5.40) Hemoglobin 13.2 g/dL (12.0-15.5) Hematocrit 41.0 % (36.0-47.0) Mean Corpuscular Volume 83 fL (79-100) Mean Corpuscular Hemoglobin 27 pg (25-35) Mean Corpuscular Hemoglobin Concent 32 g/dL (31-37) Red Cell Distribution Width 17.7 % (11.5-14.5) Platelet Count 334 x10^3/uL (140-400) Neutrophils (%) (Auto) 66 % (31-73) Lymphocytes (%) (Auto) 23 % (24-48) Monocytes (%) (Auto) 9 % (0-9) Eosinophils (%) (Auto) 2 % (0-3) Basophils (%) (Auto) 1 % (0-3) Neutrophils # (Auto) 8.5 x10^3uL (1.8-7.7) Lymphocytes # (Auto) 2.9 x10^3/uL (1.0-4.8) Monocytes # (Auto) 1.1 x10^3/uL (0.0-1.1) Eosinophils # (Auto) 0.2 x10^3/uL (0.0-0.7) Basophils # (Auto) 0.2 x10^3/uL (0.0-0.2) Sodium Level 138 mmol/L (136-145) Potassium Level 3.7 mmol/L (3.5-5.1) Chloride Level 99 mmol/L (98-107) Carbon Dioxide Level 29 mmol/L (21-32) Anion Gap 10 (6-14) Blood Urea Nitrogen 17 mg/dL (7-20) Creatinine 1.2 mg/dL (0.6-1.0) Estimated GFR (Cockcroft-Gault) 55.2 BUN/Creatinine Ratio 14 (6-20) Glucose Level 101 mg/dL (70-99) Calcium Level 8.8 mg/dL (8.5-10.1) Total Bilirubin 0.3 mg/dL (0.2-1.0) Aspartate Amino Transf (AST/SGOT) 35 U/L (15-37) Alanine Aminotransferase (ALT/SGPT) 122 U/L (14-59) Alkaline Phosphatase 123 U/L (46-116) Troponin I Quantitative 0.078 ng/mL (0-0.055) 0.049 ng/mL (0-0.055) Total Protein 7.1 g/dL (6.4-8.2) Albumin 4.2 g/dL (3.4-5.0) Albumin/Globulin Ratio 1.4 (1.0-1.7) Coronavirus (COVID-19)(PCR) Negative (NEGATIVE) SARS-CoV-2 Antigen (Rapid) Negative (NEGATIVE) Urine Collection Type U cath Urine Color Yellow Urine Clarity Clear Urine pH 6.0 Urine Specific [place] 1.015 Urine Protein Neg (NEG-TRACE) Urine Glucose (UA) Neg mg/dL (NEG) Urine Ketones (Stick) Trace mg/dL (NEG) Urine Blood Neg (NEG) Urine Nitrite Neg (NEG) Urine Bilirubin Small (NEG) Urine Urobilinogen Dipstick 0.2 mg/dL (0.2 mg/dL) Urine Leukocyte Esterase Neg (NEG) Urine RBC 0 /HPF (0-2) Urine WBC Occ /HPF (0-4) Urine Squamous Epithelial Cells Occ /LPF Urine Bacteria 0 /HPF (0-FEW) Test 06/17/21 08:20 06/17/21 17:00 Lactic Acid Level 0.7 mmol/L (0.4-2.0) Gamma Glutamyl Transpeptidase 190 U/L (5-55) Troponin I Quantitative 0.056 ng/mL (0-0.055) Thyroid Stimulating Hormone (TSH) 0.056 uIU/mL (0.358-3.740) Urine Opiates Screen Pos (NEG) Urine Methadone Screen Neg (NEG) Urine Barbiturates Neg (NEG) Urine Phencyclidine Screen Neg (NEG) Urine Amphetamine/Methamphetamine Neg (NEG) Urine Benzodiazepines Screen Neg (NEG) Urine Cocaine Screen Neg (NEG) Urine Cannabinoids Screen Pos (NEG) Urine Ethyl Alcohol Neg (NEG) Physical Exams HEENT: Neck Supple W Full Motion Chest: Symmetric Lungs: Other (on RA) Heart: RRR Abdomen: Other (non-distended) Extremities: No Edema Neurology: other (sleeping ) Assessment Assessment 1. Acute respiratory failure, COVID PNA. Rapid negative, PCR + 4 days prior to arrival at PCP office. Rapid and PCR negative here. S/p vaccination 12/22. Multiple family members at home COVID + 2. Mild troponin elevation; highest 0.07. Most probably type II, demand ischemia. Recent echo with preserved LV systolic function 3. Prolonged weakness and neuropathy due to Guillain-Asif syndrome earlier this year 4. H/o hypertension with hypotension upon arrival. Now adequate 5. H/o SVT; on metoprolol for rate control 6. Anxiety, depression 7. Obesity 8. Tobaccoism Recommendations ASA therapy Resume metoprolol as blood pressure allows. Ongoing lung optimization Supportive care from a CV standpoint MAVERICK HUANG APRN Jun 18, 2021 08:07
[2021-06-18] MEDS ORDERED: CARVEDILOL 12.5 MG TABLET ONE (09:00)
[2021-06-18] MEDS ORDERED: BISACODYL 10 MG SUPP.RECT PR PRN (12:15)
[2021-06-18 12:47] VITALS: BP 148/92
[2021-06-18] MEDS ORDERED: MORP-16 PO (13:12)
[2021-06-18] MEDS ORDERED: ASPI-889 PO (13:12)
--- NOTE | 2021-06-18 13:14 | NUR ---
PT is very focused on going home today. PT is able to verbalize understanding of poc. Dr Sampson said she can go home if she has a BM. Pt did shower today and was up to chair by pivoting. Missy RUDOLPH
[2021-06-18] MEDS ORDERED: REMDESIVIR 100mg in NORMAL SALINE 250ML X 4 DAYS IV SCH (15:00)
[2021-06-18] MEDS ORDERED: AMOX1TAB61 PO (15:56)
[2021-06-18 16:00] VITALS: BP 130/88
--- NOTE | 2021-06-18 17:10 | NUR ---
PT dc to home. Gave dc instruction to patient and also talked to her grandmother. Had to send home all medication that came with her to the hospital including oxy. PT can take oxy at bedtime and in am until morphine is filled. sent home on augmentin. IV's removed with ease. 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 Blake RUDOLPH
[2021-06-18] MEDS ORDERED: MORPHINE ER 30 MG TABLET.ER PO SCH ×2 (21:00)
[2021-06-18] MEDS ORDERED: METOPROLOL TART IMMED RELEASE 25 MG TABLET. PO SCH (21:00)
[2021-06-18] MEDS ORDERED: DEXAMETHASONE SOD PHOS 10 MG/ML VIAL. IV SCH (21:00)
--- NOTE | 2021-06-20 18:24 | DS ---
DATE OF DISCHARGE: 06/18/2021 HOSPITAL COURSE: A 25-year-old female with history of Guillain-[place] syndrome, been feeling fairly well except developed COVID-19 despite having immunizations earlier in the year. The patient became increasingly short of breath and also markedly showing acute signs of a problem of complete confusional hallucinatory behavior. The patient may have taken too much of her pain medication, but in any case, the patient also had problems with breathing and just overall persistent pulmonary infiltrates in her lungs. Serology on repeat, although previous COVID testing had been positive by PCR, the one's here in the hospital were negative. The patient was given IV fluids. She was monitored carefully and made further evaluation on her as we progressed. She had to be given Narcan 2 or 3 times to help her recover from some of her medications. The patient's troponins were also elevated to 0.056, and actually, Cardiology had evaluated the patient and they were not too concerned about the elevation in troponin, possibly demand ischemia with recent echos, preserved left ventricular function. There was history of SVT. The patient has been on metoprolol for this and of course her obesity and her diabetes. The patient made good progress overall. Her labs were significant; however, she had slightly elevated liver enzymes, ALT of 122, alkaline phos 123. The patient's other interesting are noted was her TSH was low at 0.056 that needs to be followed up as an outpatient. Lactic acid was unremarkable. Blood sugars in the upper 100s. Sodium and potassium 138 and 3.7, BUN and creatinine 17 and 1.2. Slight decrease in her GFR at 55. The patient's white count 13, hemoglobin and hematocrit 13 and 41, otherwise differential was pretty much unremarkable. Toxicology screen does show positive for opiates and marijuana. The patient otherwise made good progress. She recovered. She received physical and occupational therapy and will be followed up as an outpatient carefully. See MRAD. IMPRESSION: Metabolic encephalopathy, history of Guillain-[place] syndrome within the last 2 months, labile hypertension, sinus tachycardia, history of supraventricular tachycardia, hyperthyroidism, elevated troponin levels, possible demand ischemia, elevated liver enzymes, anxiety, depression, obesity, tobaccoism, type 2 diabetes, mild renal insufficiency stage IIIA. The patient will be adjusted on her medications, pain medication and the like. Continue with PT, OT as an outpatient, try to set her up with a rehab facility and make further evaluation on her as an outpatient. JUDAH/VIDA/YANNA DR: Joel TID: [id number]
[2021-06-24] MEDS ORDERED: cloNIDine TTS-1 1 PATCH PATCH TD SCH (09:00)
== END 2021-06-18 17:00 | disposition home or self-care (01) | DRG 177 ==
LOC: ER 22:21 → ICU 06-17 02:05
PROVIDERS: ADMIT Family Medicine; ATTEND Family Medicine
PROC: XW033E5 Introduction of Remdesivir Anti-infective into Peripheral Vein, Percutaneous Approach, New Technology Group 5 (ICD-10-PCS; principal; 2021-06-17)
DX: U07.1 COVID-19 (principal); J12.82 Pneumonia due to coronavirus disease 2019; J96.01 Acute respiratory failure with hypoxia; G93.41 Metabolic encephalopathy; G61.0 Guillain-Barre syndrome; N17.9 Acute kidney failure, unspecified; I24.8 Other forms of acute ischemic heart disease; F41.9 Anxiety disorder, unspecified; F32.9 Major depressive disorder, single episode, unspecified; I12.9 Hypertensive chronic kidney disease with stage 1 through stage 4 chronic kidney disease, or unspecified chronic kidney disease; F17.200 Nicotine dependence, unspecified, uncomplicated; G43.909 Migraine, unspecified, not intractable, without status migrainosus; G47.30 Sleep apnea, unspecified; K21.9 Gastro-esophageal reflux disease without esophagitis; E11.22 Type 2 diabetes mellitus with diabetic chronic kidney disease; G62.9 Polyneuropathy, unspecified; N18.31 Chronic kidney disease, stage 3a; E66.9 Obesity, unspecified; Z83.3 Family history of diabetes mellitus; Z82.5 Family history of asthma and other chronic lower respiratory diseases; Z82.49 Family history of ischemic heart disease and other diseases of the circulatory system; Z79.01 Long term (current) use of anticoagulants; Z68.37 Body mass index [BMI] 37.0-37.9, adult
CPT/HCPCS: 36415; 70450; 71045; 80053; 80307; 81001; 82977; 83605; 84443; 84484; 85025; 87426; 93005; 96365; 96372; 96375; J1100; J1650; J2060; J2310; J2543; J3370; J7040; J7050; U0003; 97530; 99285-25; J7030

== ENCOUNTER 2021-06-28 02:02 | Emergency (ER) | payer OTHER ==
[~2021-06-28] VITALS: Ht 160 cm; Wt 104.0 kg
[~2021-06-28 02:02] MED LIST changes: -DOXY100T PO
--- NOTE | 2021-06-28 02:06 | PHYS DOC ---
Past History Past Medical History: Anxiety, Depression, GERD, Hypertension, Migraines Additional Past Medical Histor: bam HERRING Past Surgical History: No Surgical History Alcohol Use: None Drug Use: None Adult General HPI HPI Patient is a 25-year-old female presents with right ankle pain after twisting it while going down the stairs just before coming into the ED. States that she has pain in the ankle, 6 out of 10, dull and achy in nature with no radiation. Denies any other injuries. Did not take any medications. Review of Systems Review of Systems Review of systems otherwise unremarkable except noted in HPI Allergies Allergies Allergies Coded Allergies Type Severity Reaction Last Updated Verified No Known Allergies Allergy Unknown 06/16/21 Yes Physical Exam Physical Exam Constitutional: Well developed, well nourished, no acute distress, non-toxic appearance. [] HENT: Normocephalic, atraumatic, bilateral external ears normal, oropharynx moist, no oral exudates, nose normal. [] Skin: Warm, dry, no erythema, no rash. [] Back: No tenderness, Extremities: Mild generalized tenderness with no obvious bruising or deformities. Neurovascular exam intact. Neurologic: Alert and oriented X 3, no focal deficits noted. [] Psychologic: Affect normal, judgement normal, mood normal. [] EKG EKG [] Radiology/Procedures Radiology/Procedures [] Heart Score C/O Chest Pain: No Risk Factors: Risk Factors: DM, Current or recent (<one month) smoker, HTN, HLP, family history of CAD, obesity. Risk Scores: Risk Factors: DM, Current or recent (<one month) smoker, HTN, HLP, family history of CAD, obesity. Course & Med Decision Making Course & Med Decision Making P patient is a 25-year-old female who presents with right ankle pain after twisting it Vital signs not concerning. Physical exam noted above. Patient given ice pack and Tylenol. Imaging with no acute osseous abnormalities. Placed in Barry wrap. Gave recommendations for pain control at home. Advised follow-up with primary care physician on Wednesday. Gave return precautions to the ED. Patient grateful, verbalized understanding agreed with plan of discharge. [] Dragon Disclaimer Dragon Disclaimer This electronic medical record was generated, in whole or in part, using a voice recognition dictation system. Departure Departure: Impression: Primary Impression: Ankle pain Additional Impression: Ankle sprain Disposition: HOME / SELF CARE / HOMELESS Condition: GOOD Referrals: ELHAM MALCOLM MD (PCP) Patient Instructions: Ankle Sprain Additional Instructions: Thank you for coming into the emergency department tonight and allowing us to take care of you. Please read the attached information closely to go over things we discussed. You can use Tylenol, ibuprofen, Benadryl and ice as needed at home for pain control if you can tolerate these medications and are not allergic. Please follow-up on Wednesday with your primary care physician to set up a visit for reevaluation. Please come back to the ED with new or concerning symptoms as discussed. Problem Qualifiers CINTHYA PAINTING MD Jun 28, 2021 02:06
[2021-06-28] MEDS ORDERED: ACETAMINOPHEN 500 MG TABLET PO ONE (02:15)
[2021-06-28 02:19] VITALS: BP 105/73
--- NOTE | 2021-06-28 03:24 | RAD ---
RIGHT ANKLE AP, LATERAL, OBLIQUE Clinical Indication: Reason: twisted ankle / Spl. Instructions: / History: Comparison: None. Findings: There is no acute fracture or dislocation. Mineralization is normal. Joint spaces are maintained. The ankle mortise is intact. There is lateral ankle soft tissue swelling. IMPRESSION: No acute fracture. Electronically signed by: Edward Banuelos MD (06/28/2021 3:22 AM) [facility]
[2021-06-29] MEDS ORDERED: DOXY100T PO (03:42)
== END 2021-06-28 02:36 | disposition home or self-care (01) ==
LOC: ER 02:02
DX: S93.401A Sprain of unspecified ligament of right ankle, initial encounter (principal); K21.9 Gastro-esophageal reflux disease without esophagitis; I10 Essential (primary) hypertension; X50.1XXA Overexertion from prolonged static or awkward postures, initial encounter; Y93.89 Activity, other specified; Y92.89 Other specified places as the place of occurrence of the external cause; Y99.8 Other external cause status
CPT/HCPCS: 73610; 99283-25

== ENCOUNTER 2021-06-28 22:17 | Emergency (ER) | payer OTHER ==
[~2021-06-28] VITALS: Ht 160 cm; Wt 104.0 kg
--- NOTE | 2021-06-28 22:54 | PHYS DOC ---
Past History Past Medical History: Anxiety, Depression, GERD, Hypertension, Migraines Additional Past Medical Histor: Guillian-[place] dx in January with muscle weakness, tachycardia, Past Surgical History: Other Additional Past Surgical Histo: bronchoscopy Alcohol Use: Rarely Drug Use: None Adult General Chief Complaint Chief Complaint: SEIZURE HPI HPI Patient is a 25-year-old female with a past medical history significant for anxiety, depression and recent onset of Guillain-Asif after Covid vaccination who presents to the emergency department at the request of her family as they felt she was having seizure activity. Patient states that she took her 30 mg morphine, her Lyrica, baclofen and her Trileptal which usually makes her sleepy just before coming to the emergency department. Patient states that family saw her twitching, thought she was having seizure activity so called EMS. Here in the emergency department patient states that I feel fine I have never had any seizures and I did not really need to come because it was probably due to all my medications that I took. Denies any recent other traumas, fevers, illnesses, chest pain, shortness of breath, abdominal pain, nausea, vomiting, dysuria, hematuria, blood in the stool or diarrhea. Denies any other alcohol or drug use. Review of Systems Review of Systems Review of systems otherwise unremarkable except noted in HPI Allergies Allergies Allergies Coded Allergies Type Severity Reaction Last Updated Verified No Known Allergies Allergy Unknown 06/28/21 Yes Physical Exam Physical Exam Constitutional: Well developed, well nourished, no acute distress, non-toxic appearance. [] HENT: Normocephalic, atraumatic, bilateral external ears normal, oropharynx moist, no oral exudates, nose normal. [] Eyes: PERRLA, EOMI, conjunctiva normal, no discharge. [] Neck: Normal range of motion, no tenderness, supple, no stridor. [] Cardiovascular:Heart rate regular rhythm, no murmur [] Lungs & Thorax: Bilateral breath sounds clear to auscultation [] Abdomen: Bowel sounds normal, soft, no tenderness, no masses, no pulsatile masses. [] Skin: Warm, dry, no erythema, no rash. [] Back: No tenderness, no CVA tenderness. [] Extremities: No tenderness, baseline range of motion, no edema. [] Neurologic: Alert and oriented X 3, baseline motor function function, baseline sensory function, cranial nerves intact, no focal deficits noted. [] Psychologic: Affect normal, judgement normal, mood normal. [] Current Patient Data Vital Signs Vital Signs Date Time Temp Pulse Resp B/P (MAP) Pulse Ox O2 Delivery O2 Flow Rate FiO2 06/28/21 22:30 98.7 79 16 77/50 97 EKG EKG [] Radiology/Procedures Radiology/Procedures [] Heart Score C/O Chest Pain: No Risk Factors: Risk Factors: DM, Current or recent (<one month) smoker, HTN, HLP, family histo ry of CAD, obesity. Risk Scores: Risk Factors: DM, Current or recent (<one month) smoker, HTN, HLP, family history of CAD, obesity. Course & Med Decision Making Course & Med Decision Making Patient is a 25-year-old female who presents to the emergency department at the request of her family as I felt that she was having seizure activity after taking her medications at home Vital signs not concerning. Initial blood pressure low, but cuff was reapplied and a normal pressure obtained. Placed on the monitor with IV access established. Given IV fluid resuscitation x2 L. Laboratory analysis notable for mild leukocytosis, neutrophilic and mild elevation creatinine. Given breathing treatment by respiratory therapy and educated on the use of albuterol inhaler and MDI. Started on doxycycline as well given cough, chest x-ray suggestive of bronchitis versus atypical pneumonia. Discussed all findings with patient. Advised to follow-up on Wednesday morning with her primary care physician to discuss ED visit and set up follow- up for soon as possible. Call patient's primary care physician Dr. Bee to update. Gave strict return precautions to the ED. Patient grateful, verbalized understanding and agreed with plan of discharge. Ambulance called to discharge patient home. Dragon Disclaimer Dragon Disclaimer This electronic medical record was generated, in whole or in part, using a voice recognition dictation system. Departure Departure: Impression: Primary Impression: Polypharmacy Additional Impressions: Bronchitis Cough Disposition: HOME / SELF CARE / HOMELESS Condition: GOOD Referrals: ELHAM MALCOLM MD (PCP) Patient Instructions: Bronchitis, Polypharmacy Problems Additional Instructions: Thank you for coming into the emergency department tonight and allowing us to take care of you. Please read the attached information very carefully to go back over some of the things we discussed. Please take your antibiotics as prescribed. Please use your albuterol inhaler as demonstrated and prescribed. Please contact your primary care physician first thing Wednesday morning to discuss your ED visit, your bronchitis and the albuterol inhaler as well as your antibiotics. The most important thing to discuss is the polypharmacy, meaning all of the medications that you take are central nervous system depressants as we discussed and can make you terribly sleepy and hard to wake up as seen earlier. This can be dangerous and cause significant respiratory depression especially given your sleep apnea and Guillain-Asif. Please come back to the emergency department immediately with new or concerning symptoms as discussed. Scripts Doxycycline Hyclate (DOXYCYCLINE HYCLATE) 100 Mg Tablet 1 TAB PO BID for respiratory infection, #13 TAB Prov: CINTHYA PAINTING MD 06/29/21 Problem Qualifiers CINTHYA PAINTING MD Jun 28, 2021 22:54
[2021-06-28 23:11] LABS: BASO # 0.1 x10^3/uL (0.0-0.2); BASO % 1 % (0-3); EOS # 0.2 x10^3/uL (0.0-0.7); EOS % 2 % (0-3); HEMATOCRIT 34.9 % (36.0-47.0); HEMOGLOBIN 11.1 g/dL (12.0-15.5); LYMPH % 16 % (24-48); MEAN CORPUSCULAR HEMOGLOBIN 26 pg (25-35); MEAN CORPUSCULAR HGB CONC 32 g/dL (31-37); MEAN CORPUSCULAR VOLUME 82 fL (79-100); MONO # 0.4 x10^3/uL (0.0-1.1); MONO % 3 % (0-9); NEUT # 10.1 x10^3uL (1.8-7.7); NEUT % 78 % (31-73); PLATELET COUNT 280 x10^3/uL (140-400); RED BLOOD COUNT 4.27 x10^6/uL (3.50-5.40); RED CELL DISTRIBUTION WIDTH 18.8 % (11.5-14.5); WHITE BLOOD COUNT 12.9 x10^3/uL (4.0-11.0)
[2021-06-28 23:20] LABS: BILIRUBIN,URINE NEG (NEG); CLARITY,URINE CLEAR; COLOR,URINE YELLOW; GLUCOSE,URINE NEG (NEG); NITRITE,URINE NEG (NEG); UROBILINOGEN,URINE 0.2 mg/dL (0.2 mg/dL)
[2021-06-28 23:21] LABS: BACTERIA,URINE 0 /HPF (0-FEW); RBC,URINE 0 /HPF (0-2); SQUAMOUS EPITHELIAL CELL,UR OCC /LPF; WBC,URINE OCC /HPF (0-4)
[2021-06-28 23:22] LABS: CALCIUM 8.2 mg/dL (8.5-10.1); CREATININE 1.7 mg/dL (0.6-1.0); GFR 36.9; MAGNESIUM 2.2 mg/dL (1.8-2.4); POTASSIUM 4.4 mmol/L (3.5-5.1)
[2021-06-28] MEDS ORDERED: IV RINGERS SOLUTION,LACTATED 1,000 ML IV ONE (23:30)
[2021-06-29 00:38] LABS: U PREG PATIENT NEGATIVE (NEG)
--- NOTE | 2021-06-29 01:00 | RAD ---
EXAM: CT head without contrast INDICATION: Altered mental status COMPARISON: CT head 06/17/2021 TECHNIQUE: Axial CT imaging through the head without intravenous contrast. One or more of the following individualized dose reduction techniques were utilized for this examinat ion: 1. Automated exposure control 2. Adjustment of the mA and/or kV according to patient size 3. Use of iterative reconstruction technique. FINDINGS: The ventricles and sulci are normal. Lester-white matter differentiation is maintained. There is no in tracranial hemorrhage, acute infarct, or mass lesion. Basal cisterns are clear. The skull and scalp are intact. Paranasal sinuses and mastoid air cells are clear. Globes and orbits are intact.. IMPRESSION: No acute intracranial abnormality. Electronically signed by: Viridiana Segovia MD (06/29/2021 12:58 AM) [id number]
[2021-06-29] MEDS ORDERED: IV DEXTROSE 5% - 0.9 % NACL 1,000 ML IV ONE (01:30)
[2021-06-29] MEDS ORDERED: DOXY100T PO (03:42)
[2021-06-29] MEDS ORDERED: ALBUTEROL SULFATE 8GM INHALER. INH ONE (04:00)
[2021-06-29] MEDS ORDERED: DOXYCYCLINE HYCLATE 100 MG TABLET PO ONE (04:00)
[2021-06-29 04:10] VITALS: BP 123/72
--- NOTE | 2021-06-29 06:57 | RAD ---
EXAM: XR CHEST 1V 06/29/2021 3:23 AM CLINICAL INDICATION: Cough COMPARISON: Chest radiograph 06/17/2021 TECHNIQUE: AP upright view of the chest FINDINGS: The heart and mediastinum are normal. Lung expansion has improved. Bilateral opacities hav e resolved. No consolidation, pleural effusion, or pneumothorax. Pulmonary vascularity is normal. T he thoracic skeleton is intact. IMPRESSION: Resolution of pulmonary opacities. No new abnormality. Electronically signed by: Viridiana Segovia MD (06/29/2021 6:54 AM) [id number]
== END 2021-06-29 04:20 | disposition home or self-care (01) ==
LOC: ER 22:17
DX: J40 Bronchitis, not specified as acute or chronic (principal); K21.9 Gastro-esophageal reflux disease without esophagitis; I10 Essential (primary) hypertension
CPT/HCPCS: 36415; 70450; 71045; 80048; 81001; 81025; 83735; 85025; 96360; 96361; 99285; J7042; J7120

== ENCOUNTER → 2021-06-28 | Outpatient (CLI) | payer OTHER ==
[~2021-06-28] MED LIST changes: +AMOX1TAB61 PO; +ASPI-889 PO; +DOXY100T PO; +MORP-16 PO
[2021-06-28 02:19] VITALS: BP 105/73
== END ==
LOC: LAB 17:34
PROVIDERS: ATTEND Family Medicine
DX: R19.7 Diarrhea, unspecified (principal)
CPT/HCPCS: 87493